=== PATIENT | male | born 1965 | race Caucasian/White ===

== ENCOUNTER 2023-08-09 17:03 | Emergency (ER) | payer OTHER ==
[2023-08-09 17:41] VITALS: BMI 19.1
[2023-08-09 22:41] VITALS: BP 102/61; PULSE 100; RESP 17; TEMP 97.8
== END 2023-08-09 22:46 | disposition short-term general hospital (02) ==
LOC: JER 17:03
DX: Z76.0 Encounter for issue of repeat prescription (principal); Z20.822 Contact with and (suspected) exposure to COVID-19
CPT/HCPCS: 0241U-QW; 99285-25

== ENCOUNTER 2023-09-01 13:51 | Inpatient (IN) | payer OTHER ==
[2023-09-01 14:58] LABS: BASO % 0.8 % (0-2.0); EOS % 2.7 % (0-4.5); HEMATOCRIT 27.3 % (35.4-49); HEMOGLOBIN 8.7 GM/dL (11.7-16.9); LYMPH % 18.5 % (8-40); MCH 30.2 pg (25.7-33.7); MCHC 31.9 g/dl (32.0-35.9); MEAN CELL VOLUME 94.7 fl (80-96); MEAN PLT VOLUME 8.9 fl (7.5-11.1); PLATELET COUNT 191 10^3/uL (134-434); RBC 2.88 M/mm3 (4.00-5.60); RDW 15.4 % (11.9-15.9); WHITE BLOOD COUNT 6.1 K/mm3 (4.0-10.0)
[2023-09-01 15:02] LABS: INR 1.54 (0.83-1.09); PROTHROMBIN TIME (PATIENT) 17.8 SEC (9.7-13.0)
[2023-09-01 15:05] LABS: ACTIVATED PTT 27.4 SECONDS (25.2-36.5)
[2023-09-01 15:33] LABS: CHLORIDE 110 mmol/L (98-107); POTASSIUM 4.4 mmol/L (3.5-5.1); SODIUM 138 mmol/L (136-145)
[2023-09-01 15:37] LABS: CALCIUM 8.4 mg/dL (8.5-10.1)
[2023-09-01 15:38] LABS: ALBUMIN 3.4 g/dl (3.4-5.0); ANION GAP 6 mmol/L (4-13); BLOOD UREA NITROGEN 47.1 mg/dL (7-18); CO2 23 mmol/L (21-32); GLUCOSE,RANDOM 187 mg/dL (74-106); MAGNESIUM 2.1 mg/dL (1.8-2.4)
[2023-09-01 15:41] LABS: CREATININE 1.7 mg/dL (0.55-1.3); SGOT/AST 52 U/L (15-37); SGPT/ALT 145 U/L (13-61)
[2023-09-01 15:43] LABS: BILIRUBIN,TOTAL 0.7 mg/dL (0.2-1); TOT PROT 6.6 g/dl (6.4-8.2)
[2023-09-01 15:44] LABS: ALK PHOS 242 U/L (45-117)
[2023-09-01] MEDS ORDERED: ASPIRIN 81 MG CHEWABLE TABLETS PO ONE (15:48)
[2023-09-01] MEDS ORDERED: ASPIRIN 325 MG TABLET ONE (16:21)
[2023-09-01] MEDS ORDERED: CLOPIDOGREL BISULFATE 75 MG TABLET (FP) PO ONE (16:39)
[2023-09-01] MEDS ORDERED: TORSEMIDE 20 MG TABLET (FP) PO ONE (16:40)
[2023-09-01] MEDS ORDERED: CLOPIDOGREL BISULFATE 75 MG TABLET (FP) ONE (16:44)
[2023-09-01] MEDS ORDERED: ATORVASTATIN CA 40 MG TABLET (FP) ONE (19:31)
[2023-09-01] MEDS ORDERED: DIGOXIN 0.125 MG TABLET ONE (19:31)
[2023-09-01] MEDS: DIGOXIN 0.125 MG TABLET PO SCH (19:46)
[2023-09-01 21:04] LABS: EPI CELLS 2 /uL (0-25.1); HYALINE CASTS 0 /uL (0-3.1); URINE APPEARANCE CLEAR; URINE BACTERIA 1 /uL (0-1359); URINE BILIRUBIN NEGATIVE (NEGATIVE); URINE COLOR YELLOW; URINE GLUCOSE (UA) NEGATIVE (NEGATIVE); URINE KETONE NEGATIVE (NEGATIVE); URINE LEUK ESTERASE NEGATIVE (NEGATIVE); URINE NITRITE NEGATIVE (NEGATIVE); URINE PROTEIN 1+ (NEGATIVE); URINE RBC 8 /uL (0-23.9); URINE UROBILINOGEN 0.2 mg/dL (0.2-1.0); URINE WBC 2 /uL (0-25.8)
[2023-09-01] MEDS: ATORVASTATIN CA 40 MG TABLET (FP) PO SCH (21:07)
[2023-09-02 08:09] LABS: POTASSIUM 4.6 mmol/L (3.5-5.1)
[2023-09-02 08:13] LABS: BASO % 1.8 % (0-2.0); EOS % 6.6 % (0-4.5); HEMATOCRIT 26.2 % (35.4-49); HEMOGLOBIN 8.8 GM/dL (11.7-16.9); LYMPH % 18.8 % (8-40); MCH 31.6 pg (25.7-33.7); MCHC 33.7 g/dl (32.0-35.9); MEAN CELL VOLUME 93.7 fl (80-96); MONO % 11.4 % (3.8-10.2); NEUT % 61.4 % (42.8-82.8); PLATELET COUNT 178 10^3/uL (134-434); RDW 15.9 % (11.9-15.9); WHITE BLOOD COUNT 5.9 K/mm3 (4.0-10.0)
[2023-09-02 08:18] LABS: CALCIUM 8.4 mg/dL (8.5-10.1)
[2023-09-02 08:19] LABS: ALBUMIN 3.2 g/dl (3.4-5.0)
[2023-09-02 08:22] LABS: CREATININE 1.6 mg/dL (0.55-1.3)
[2023-09-02 08:23] LABS: BILIRUBIN,TOTAL 0.8 mg/dL (0.2-1); TOT PROT 6.4 g/dl (6.4-8.2)
[2023-09-02] MEDS: DIGOXIN 0.125 MG TABLET PO SCH ×2 (08:41→09:14)
[2023-09-02] MEDS: ASPIRIN COATED 81 MG TABLET.EC PO SCH ×2 (08:41→09:14)
[2023-09-02] MEDS: CLOPIDOGREL BISULFATE 75 MG TABLET (FP) PO SCH ×2 (08:41→09:14)
[2023-09-02] MEDS: TORSEMIDE 20 MG TABLET (FP) PO SCH ×2 (08:41→09:14)
[2023-09-02] MEDS ORDERED: INSULIN (NOVOLOG) ASPART 100 UNITS/ML 10ML VIAL ONE (11:08)
[2023-09-02 11:29] LABS: COCAINE, UR NEGATIVE (NEGATIVE); METHADONE, UR NEGATIVE (NEGATIVE); OPIATES, URI NEGATIVE (NEGATIVE); PHENCYCLIDINE,URINE NEGATIVE (NEGATIVE); URINE AMPHETAMINES NEGATIVE (NEGATIVE); URINE BARBITURATES NEGATIVE (NEGATIVE); URINE BENZODIAZEPINES NEGATIVE (NEGATIVE)
[2023-09-02] MEDS ORDERED: FUROSEMIDE 40 MG/4 ML INJECTABLE VIAL ONE (11:31)
[2023-09-02] MEDS: FUROSEMIDE 40 MG/4 ML INJECTABLE VIAL IVPUSH SCH (12:09)
[2023-09-02 17:34] LABS: URINE APPEARANCE CLEAR; URINE BILIRUBIN NEGATIVE (NEGATIVE); URINE COLOR YELLOW; URINE GLUCOSE (UA) NEGATIVE (NEGATIVE); URINE KETONE NEGATIVE (NEGATIVE); URINE LEUK ESTERASE NEGATIVE (NEGATIVE); URINE NITRITE NEGATIVE (NEGATIVE); URINE PROTEIN NEGATIVE (NEGATIVE); URINE UROBILINOGEN 0.2 mg/dL (0.2-1.0)
[2023-09-02] MEDS: ATORVASTATIN CA 40 MG TABLET (FP) PO SCH (22:11)
[2023-09-03 07:01] LABS: BASO % 1.8 % (0-2.0); HEMATOCRIT 26.8 % (35.4-49); HEMOGLOBIN 8.8 GM/dL (11.7-16.9); MCH 30.9 pg (25.7-33.7); MEAN CELL VOLUME 93.4 fl (80-96); MEAN PLT VOLUME 9.1 fl (7.5-11.1); MONO % 12.4 % (3.8-10.2); NEUT % 57.8 % (42.8-82.8); PLATELET COUNT 193 10^3/uL (134-434); RBC 2.86 M/mm3 (4.00-5.60); RDW 15.1 % (11.9-15.9); WHITE BLOOD COUNT 6.1 K/mm3 (4.0-10.0)
[2023-09-03 07:18] LABS: POTASSIUM 4.2 mmol/L (3.5-5.1)
[2023-09-03 07:36] LABS: CALCIUM 8.6 mg/dL (8.5-10.1)
[2023-09-03 07:37] LABS: ALBUMIN 3.3 g/dl (3.4-5.0); BLOOD UREA NITROGEN 46.4 mg/dL (7-18)
[2023-09-03 07:40] LABS: CREATININE 1.6 mg/dL (0.55-1.3)
[2023-09-03 07:41] LABS: BILIRUBIN,TOTAL 0.8 mg/dL (0.2-1); TOT PROT 6.4 g/dl (6.4-8.2)
[2023-09-03] MEDS: ASPIRIN COATED 81 MG TABLET.EC PO SCH (09:37)
[2023-09-03] MEDS: FUROSEMIDE 40 MG/4 ML INJECTABLE VIAL IVPUSH SCH (09:37)
[2023-09-03] MEDS: DIGOXIN 0.125 MG TABLET PO SCH (09:38)
[2023-09-03] MEDS: CLOPIDOGREL BISULFATE 75 MG TABLET (FP) PO SCH (09:38)
[2023-09-03] MEDS ORDERED: POVIDONE-IODINE 10% SOLN 118 ML BOTTLE TP ONE (11:20)
[2023-09-03] MEDS: SPIRONOLACTONE 25 MG TABLET PO SCH (11:39)
[2023-09-03] MEDS: ATORVASTATIN CA 40 MG TABLET (FP) PO SCH (21:12)
[2023-09-03] MEDS: HEPARIN NA (PORCINE) 5,000 UNITS/ML 1ML VIAL SQ SCH (21:12)
[2023-09-04] MEDS: FUROSEMIDE 40 MG/4 ML INJECTABLE VIAL IVPUSH SCH ×2 (06:20→15:12)
[2023-09-04 07:27] LABS: BASO % 1.8 % (0-2.0); EOS % 6.4 % (0-4.5); HEMATOCRIT 25.9 % (35.4-49); HEMOGLOBIN 8.7 GM/dL (11.7-16.9); LYMPH % 23.3 % (8-40); MCH 30.7 pg (25.7-33.7); MCHC 33.6 g/dl (32.0-35.9); MEAN CELL VOLUME 91.4 fl (80-96); MONO % 15.6 % (3.8-10.2); NEUT % 52.9 % (42.8-82.8); PLATELET COUNT 192 10^3/uL (134-434); RBC 2.84 M/mm3 (4.00-5.60); RDW 15.5 % (11.9-15.9)
[2023-09-04 09:02] LABS: POTASSIUM 3.9 mmol/L (3.5-5.1)
[2023-09-04 09:06] LABS: CALCIUM 8.3 mg/dL (8.5-10.1)
[2023-09-04 09:07] LABS: ALBUMIN 3.2 g/dl (3.4-5.0); BLOOD UREA NITROGEN 42.3 mg/dL (7-18)
[2023-09-04 09:09] LABS: CREATININE 1.6 mg/dL (0.55-1.3)
[2023-09-04 09:10] LABS: PHOSPHOROUS 3.3 mg/dL (2.5-4.9)
[2023-09-04 09:12] LABS: BILIRUBIN,TOTAL 0.8 mg/dL (0.2-1); TOT PROT 6.2 g/dl (6.4-8.2)
[2023-09-04] MEDS: ASPIRIN COATED 81 MG TABLET.EC PO SCH (10:17)
[2023-09-04] MEDS: SPIRONOLACTONE 25 MG TABLET PO SCH (10:18)
[2023-09-04] MEDS: HEPARIN NA (PORCINE) 5,000 UNITS/ML 1ML VIAL SQ SCH ×2 (10:18→21:08)
[2023-09-04] MEDS: CLOPIDOGREL BISULFATE 75 MG TABLET (FP) PO SCH (10:18)
[2023-09-04] MEDS: DIGOXIN 0.125 MG TABLET PO SCH (10:18)
[2023-09-04] MEDS: INSULIN SLIDING SCALE (NOVOLOG) 1 VIAL SQ SCH (18:09)
[2023-09-04] MEDS: ATORVASTATIN CA 40 MG TABLET (FP) PO SCH (21:08)
[2023-09-05] MEDS: FUROSEMIDE 40 MG/4 ML INJECTABLE VIAL IVPUSH SCH ×2 (06:46→13:28)
[2023-09-05] MEDS: INSULIN SLIDING SCALE (NOVOLOG) 1 VIAL SQ SCH ×3 (06:50→16:34)
[2023-09-05 07:40] LABS: BASO % 1.4 % (0-2.0); EOS % 7.2 % (0-4.5); HEMATOCRIT 28.8 % (35.4-49); HEMOGLOBIN 9.4 GM/dL (11.7-16.9); LYMPH % 24.7 % (8-40); MCH 30.5 pg (25.7-33.7); MCHC 32.8 g/dl (32.0-35.9); MEAN CELL VOLUME 93.2 fl (80-96); MEAN PLT VOLUME 9.1 fl (7.5-11.1); MONO % 13.6 % (3.8-10.2); NEUT % 53.1 % (42.8-82.8); PLATELET COUNT 203 10^3/uL (134-434); RBC 3.09 M/mm3 (4.00-5.60); RDW 15.2 % (11.9-15.9); WHITE BLOOD COUNT 5.2 K/mm3 (4.0-10.0)
[2023-09-05 08:06] LABS: ALBUMIN 3.3 g/dl (3.4-5.0); BLOOD UREA NITROGEN 40.5 mg/dL (7-18); CALCIUM 8.7 mg/dL (8.5-10.1)
[2023-09-05 08:08] LABS: CREATININE 1.5 mg/dL (0.55-1.3)
[2023-09-05 08:09] LABS: BILIRUBIN,TOTAL 0.8 mg/dL (0.2-1); TOT PROT 6.3 g/dl (6.4-8.2)
[2023-09-05] MEDS: SPIRONOLACTONE 25 MG TABLET PO SCH (10:15)
[2023-09-05] MEDS: ASPIRIN COATED 81 MG TABLET.EC PO SCH (10:15)
[2023-09-05] MEDS: DIGOXIN 0.125 MG TABLET PO SCH (10:15)
[2023-09-05] MEDS: CLOPIDOGREL BISULFATE 75 MG TABLET (FP) PO SCH (10:15)
[2023-09-05] MEDS: HEPARIN NA (PORCINE) 5,000 UNITS/ML 1ML VIAL SQ SCH ×2 (10:15→21:27)
[2023-09-05] MEDS: ATORVASTATIN CA 40 MG TABLET (FP) PO SCH (21:27)
[2023-09-06] MEDS: FUROSEMIDE 40 MG/4 ML INJECTABLE VIAL IVPUSH SCH ×2 (05:52→13:04)
[2023-09-06] MEDS: INSULIN SLIDING SCALE (NOVOLOG) 1 VIAL SQ SCH ×2 (06:11→11:16)
[2023-09-06 07:02] LABS: BASO % 1.2 % (0-2.0); HEMATOCRIT 28.9 % (35.4-49); HEMOGLOBIN 9.2 GM/dL (11.7-16.9); LYMPH % 20.2 % (8-40); MCH 29.9 pg (25.7-33.7); MCHC 31.8 g/dl (32.0-35.9); MEAN CELL VOLUME 94.1 fl (80-96); MEAN PLT VOLUME 8.5 fl (7.5-11.1); MONO % 12.2 % (3.8-10.2); NEUT % 58.4 % (42.8-82.8); PLATELET COUNT 210 10^3/uL (134-434); RBC 3.07 M/mm3 (4.00-5.60); RDW 15.6 % (11.9-15.9); WHITE BLOOD COUNT 5.9 K/mm3 (4.0-10.0)
[2023-09-06 07:18] LABS: POTASSIUM 3.9 mmol/L (3.5-5.1)
[2023-09-06 07:21] LABS: ALBUMIN 3.2 g/dl (3.4-5.0); CALCIUM 8.5 mg/dL (8.5-10.1)
[2023-09-06 07:23] LABS: CREATININE 1.5 mg/dL (0.55-1.3); PHOSPHOROUS 3.2 mg/dL (2.5-4.9)
[2023-09-06 07:25] LABS: BILIRUBIN,TOTAL 0.6 mg/dL (0.2-1); TOT PROT 6.3 g/dl (6.4-8.2)
[2023-09-06] MEDS: ASPIRIN COATED 81 MG TABLET.EC PO SCH (09:38)
[2023-09-06] MEDS: SPIRONOLACTONE 25 MG TABLET PO SCH (09:38)
[2023-09-06] MEDS: CLOPIDOGREL BISULFATE 75 MG TABLET (FP) PO SCH (09:38)
[2023-09-06] MEDS: HEPARIN NA (PORCINE) 5,000 UNITS/ML 1ML VIAL SQ SCH (09:39)
[2023-09-06] MEDS: DIGOXIN 0.125 MG TABLET PO SCH (09:41)
[2023-09-06] MEDS ORDERED: RAPID SEQUENCE INTUBATION KIT NR ONE (17:31)
[2023-09-06] MEDS ORDERED: HEPARIN NA (PORCINE) 5,000 UNITS/ML 1ML VIAL IVPUSH ONE (17:55)
[2023-09-06] MEDS ORDERED: HEPARIN NA (PORCINE) 5,000 UNITS/ML 1ML VIAL IVPUSH PRN ×3 (17:55→17:56)
[2023-09-06] MEDS ORDERED: MIDAZOLAM IN 0.9 % SOD.CHLORID 100 MG/100 ML PLAST..BAG IVPB SCH (18:00)
[2023-09-06] MEDS ORDERED: HEPARIN - 25,000 UNIT in SODIUM CHLORIDE 495 ML IV SCH (18:00)
[2023-09-06] MEDS ORDERED: fentaNYL CITRATE 250 MCG/5 ML VIAL ONE (18:27)
[2023-09-06] MEDS ORDERED: MIDAZOLAM HCL 2 MG/2 ML SINGLE DOSE VIAL IVPUSH ONE (18:44)
[2023-09-06 19:25] LABS: BASO % 1.2 % (0-2.0); EOS % 6.1 % (0-4.5); HEMATOCRIT 28.5 % (35.4-49); HEMOGLOBIN 9.1 GM/dL (11.7-16.9); LYMPH % 24.4 % (8-40); MCH 29.9 pg (25.7-33.7); MCHC 31.9 g/dl (32.0-35.9); MEAN CELL VOLUME 93.9 fl (80-96); NEUT % 59.3 % (42.8-82.8); PLATELET COUNT 209 10^3/uL (134-434); RBC 3.04 M/mm3 (4.00-5.60); RDW 16.5 % (11.9-15.9); WHITE BLOOD COUNT 4.3 K/mm3 (4.0-10.0)
[2023-09-06 19:34] LABS: INR 1.38 (0.83-1.09)
[2023-09-06 19:42] LABS: CHLORIDE 103 mmol/L (98-107); POTASSIUM 3.7 mmol/L (3.5-5.1); SODIUM 135 mmol/L (136-145)
[2023-09-06 19:44] LABS: ANION GAP 13 mmol/L (4-13); CO2 19 mmol/L (21-32)
[2023-09-06 19:46] LABS: ALBUMIN 3.2 g/dl (3.4-5.0); BLOOD UREA NITROGEN 36.2 mg/dL (7-18); CALCIUM 8.1 mg/dL (8.5-10.1)
[2023-09-06 19:47] LABS: GLUCOSE,RANDOM 297 mg/dL (74-106)
[2023-09-06 19:48] LABS: BILIRUBIN,DIRECT 0.3 mg/dL (0.0-0.2); PHOSPHOROUS 5.3 mg/dL (2.5-4.9); SGOT/AST 45 U/L (15-37); SGPT/ALT 106 U/L (13-61)
[2023-09-06 19:50] LABS: TOT PROT 6.3 g/dl (6.4-8.2)
[2023-09-06 19:51] LABS: BILIRUBIN,TOTAL 0.7 mg/dL (0.2-1)
[2023-09-06 19:54] LABS: ALK PHOS 292 U/L (45-117); LACTIC ACID 6.4 mmol/L (0.4-2.0)
[2023-09-06] MEDS ORDERED: KCL 20 MEQ IVPB SCH (20:15)
[2023-09-06 20:20] LABS: ARTERIAL BLD GAS O2 SATURATION 99.8 % (95-98); ARTERIAL BLOOD GAS BASE EXCESS 0.3 mmol/L (-2-2); ARTERIAL BLOOD GAS PO2 338.3 mmHg (80-100); ARTERIAL BLOOD GAS pH 7.428 (7.350-7.450)
[2023-09-06 20:23] LABS: ALLENS TEST POSITIVE; VENT MODE A/C; VENT RATE 20
[2023-09-06] MEDS ORDERED: FUROSEMIDE INJECTION 100 MG in SODIUM CHLORIDE 40 ML IVPB SCH ×2 (20:30→20:32)
[2023-09-06] MEDS ORDERED: NOREPINEPHRINE BITARTRATE/D5W 8 MG/250 ML BAG IVPB SCH (20:45)
[2023-09-06] MEDS ORDERED: FUROSEMIDE 40 MG/4 ML INJECTABLE VIAL IVPUSH ONE (20:45)
[2023-09-06] MEDS: KCL 20 MEQ PREMIX BAG 100 ML IVPB SCH ×2 (21:17→22:16)
[2023-09-06] MEDS: ATORVASTATIN CA 40 MG TABLET (FP) PO SCH (21:26)
[2023-09-06] MEDS: MUPIROCIN 2% TOPICAL OINTMENT FOR DECOLONIZATION NS SCH (21:26)
[2023-09-06] MEDS: FENTANYL NS IVPB 500 MCG/100 ML BAG IVPB SCH (21:30)
[2023-09-06] MEDS ORDERED: ROCURONIUM BROMIDE 50 MG/5 ML VIAL IV ONE (21:46)
[2023-09-06] MEDS ORDERED: CHLORHEXIDINE GLUCONATE 4% CLEANSER FOR DECOLONIZATION TP SCH (22:00)
[2023-09-06] MEDS ORDERED: TRIPLE LUMEN FLUSH 4 ML ML IVPUSH PRN ×2 (22:40→22:41)
[2023-09-07 00:08] LABS: VENOUS BASE EXCESS -0.1 mmol/L (-2-2); VENOUS O2 SATURATION 94.1 % (70-80); VENOUS PCO2 45.8 mmHg (38-52); VENOUS PH 7.363 (7.310-7.410)
[2023-09-07] MEDS: FENTANYL NS IVPB 500 MCG/100 ML BAG IVPB SCH ×4 (02:26→18:51)
[2023-09-07] MEDS ORDERED: MIDAZOLAM HCL 2 MG/2 ML SINGLE DOSE VIAL IVPUSH ONE (02:52)
[2023-09-07] MEDS ORDERED: CEFTRIAXONE 1 GM in DEXTROSE 5%-WATER - 50 ML IVPB SCH (03:00)
[2023-09-07 07:02] LABS: BASO % 0.9 % (0-2.0); EOS % 2.6 % (0-4.5); HEMATOCRIT 27.1 % (35.4-49); HEMOGLOBIN 8.8 GM/dL (11.7-16.9); LYMPH % 16.5 % (8-40); MCH 30.2 pg (25.7-33.7); MCHC 32.3 g/dl (32.0-35.9); MEAN CELL VOLUME 93.7 fl (80-96); MEAN PLT VOLUME 9.1 fl (7.5-11.1); MONO % 11.7 % (3.8-10.2); NEUT % 68.3 % (42.8-82.8); PLATELET COUNT 198 10^3/uL (134-434); RBC 2.89 M/mm3 (4.00-5.60); RDW 15.8 % (11.9-15.9); WHITE BLOOD COUNT 7.6 K/mm3 (4.0-10.0)
[2023-09-07 07:20] LABS: POTASSIUM 4.1 mmol/L (3.5-5.1)
[2023-09-07 07:24] LABS: ALBUMIN 3.2 g/dl (3.4-5.0); CALCIUM 8.2 mg/dL (8.5-10.1); MAGNESIUM 1.9 mg/dL (1.8-2.4)
[2023-09-07 07:25] LABS: BLOOD UREA NITROGEN 36.1 mg/dL (7-18)
[2023-09-07 07:27] LABS: CREATININE 1.7 mg/dL (0.55-1.3)
[2023-09-07 07:28] LABS: PHOSPHOROUS 3.2 mg/dL (2.5-4.9)
[2023-09-07 07:29] LABS: BILIRUBIN,TOTAL 0.6 mg/dL (0.2-1); TOT PROT 6.2 g/dl (6.4-8.2)
[2023-09-07] MEDS ORDERED: ASPIRIN COATED 81 MG TABLET.EC PO SCH (10:24)
[2023-09-07] MEDS: INSULIN SLIDING SCALE (NOVOLOG) 1 VIAL SQ SCH ×2 (13:18→17:39)
[2023-09-07] MEDS: SPIRONOLACTONE 25 MG TABLET PO SCH (13:20)
[2023-09-07] MEDS: DIGOXIN 0.125 MG TABLET PO SCH (13:20)
[2023-09-07] MEDS: CLOPIDOGREL BISULFATE 75 MG TABLET (FP) PO SCH (13:20)
[2023-09-07 15:09] LABS: BASO % 1.3 % (0-2.0); EOS % 5.8 % (0-4.5); HEMOGLOBIN 8.6 GM/dL (11.7-16.9); LYMPH % 16.7 % (8-40); MCH 30.2 pg (25.7-33.7); MCHC 32.9 g/dl (32.0-35.9); MEAN CELL VOLUME 91.9 fl (80-96); MEAN PLT VOLUME 8.9 fl (7.5-11.1); MONO % 13.9 % (3.8-10.2); NEUT % 62.3 % (42.8-82.8); PLATELET COUNT 184 10^3/uL (134-434); RBC 2.83 M/mm3 (4.00-5.60); RDW 15.6 % (11.9-15.9); WHITE BLOOD COUNT 6.5 K/mm3 (4.0-10.0)
[2023-09-07 15:30] LABS: BLOOD UREA NITROGEN 33.1 mg/dL (7-18); CALCIUM 8.3 mg/dL (8.5-10.1); MAGNESIUM 1.9 mg/dL (1.8-2.4)
[2023-09-07 15:33] LABS: CREATININE 1.7 mg/dL (0.55-1.3); PHOSPHOROUS 3.1 mg/dL (2.5-4.9)
[2023-09-07 15:35] LABS: BILIRUBIN,TOTAL 0.6 mg/dL (0.2-1)
[2023-09-07] MEDS: MUPIROCIN 2% TOPICAL OINTMENT FOR DECOLONIZATION NS SCH ×2 (17:40→22:10)
[2023-09-07] MEDS ORDERED: TRIPLE LUMEN FLUSH 4 ML ML IVPUSH PRN (17:41)
[2023-09-07] MEDS: FUROSEMIDE INJECTION 100 MG in SODIUM CHLORIDE 40 ML IVPB SCH (18:49)
[2023-09-07] MEDS: MIDAZOLAM IN 0.9 % SOD.CHLORID 100 MG/100 ML PLAST..BAG IVPB SCH (18:49)
[2023-09-07] MEDS: NOREPINEPHRINE BITARTRATE/D5W 8 MG/250 ML BAG IVPB SCH (18:51)
[2023-09-07] MEDS: AZITHROMYCIN IVPB 500 MG/250 ML BAG IVPB SCH (18:52)
[2023-09-07] MEDS: CHLORHEXIDINE GLUCONATE 4% CLEANSER FOR DECOLONIZATION TP SCH (22:10)
[2023-09-07] MEDS: ATORVASTATIN CA 40 MG TABLET (FP) PO SCH (22:10)
[2023-09-07] MEDS ORDERED: ACETAMINOPHEN 1000 MG/100 ML BAG IVPB ONE (23:32)
[2023-09-08] MEDS: FENTANYL NS IVPB 500 MCG/100 ML BAG IVPB SCH ×4 (02:09→18:01)
[2023-09-08] MEDS: CEFTRIAXONE 1 GM in DEXTROSE 5%-WATER - 50 ML IVPB SCH (03:16)
[2023-09-08] MEDS: MIDAZOLAM IN 0.9 % SOD.CHLORID 100 MG/100 ML PLAST..BAG IVPB SCH (03:33)
[2023-09-08] MEDS: NOREPINEPHRINE BITARTRATE/D5W 8 MG/250 ML BAG IVPB SCH ×2 (05:09→21:04)
[2023-09-08 06:49] LABS: BASO % 1.4 % (0-2.0); EOS % 12.7 % (0-4.5); HEMATOCRIT 25.1 % (35.4-49); HEMOGLOBIN 8.2 GM/dL (11.7-16.9); LYMPH % 14.6 % (8-40); MCH 30.6 pg (25.7-33.7); MCHC 32.8 g/dl (32.0-35.9); MEAN CELL VOLUME 93.4 fl (80-96); MEAN PLT VOLUME 9.3 fl (7.5-11.1); MONO % 12.9 % (3.8-10.2); NEUT % 58.4 % (42.8-82.8); PLATELET COUNT 162 10^3/uL (134-434); RBC 2.69 M/mm3 (4.00-5.60); RDW 15.6 % (11.9-15.9); WHITE BLOOD COUNT 7.3 K/mm3 (4.0-10.0)
[2023-09-08 07:04] LABS: ALBUMIN 2.8 g/dl (3.4-5.0); BLOOD UREA NITROGEN 29.6 mg/dL (7-18); CALCIUM 8.1 mg/dL (8.5-10.1); MAGNESIUM 1.7 mg/dL (1.8-2.4)
[2023-09-08 07:07] LABS: CREATININE 1.6 mg/dL (0.55-1.3); PHOSPHOROUS 3.7 mg/dL (2.5-4.9)
[2023-09-08 07:09] LABS: BILIRUBIN,TOTAL 0.5 mg/dL (0.2-1); TOT PROT 5.8 g/dl (6.4-8.2)
[2023-09-08] MEDS: INSULIN SLIDING SCALE (NOVOLOG) 1 VIAL SQ SCH ×3 (07:10→17:50)
[2023-09-08] MEDS ORDERED: MAGNESIUM 2GM/50ML STERILE WATER IVPB IVPB ONE (07:26)
[2023-09-08 07:28] LABS: INR 1.55 (0.83-1.09); PROTHROMBIN TIME (PATIENT) 17.9 SEC (9.7-13.0)
[2023-09-08 07:31] LABS: ACTIVATED PTT 29.5 SECONDS (25.2-36.5)
[2023-09-08] MEDS: DIGOXIN 0.125 MG TABLET PO SCH (09:33)
[2023-09-08] MEDS: MUPIROCIN 2% TOPICAL OINTMENT FOR DECOLONIZATION NS SCH ×2 (09:34→22:20)
[2023-09-08] MEDS: CLOPIDOGREL BISULFATE 75 MG TABLET (FP) PO SCH (09:34)
[2023-09-08] MEDS ORDERED: SPIRONOLACTONE 25 MG TABLET PO SCH (10:00)
[2023-09-08] MEDS ORDERED: ASPIRIN COATED 81 MG TABLET.EC PO SCH ×2 (10:00)
[2023-09-08] MEDS: PANTOPRAZOLE SODIUM 40 MG VIAL IVPUSH SCH (10:42)
[2023-09-08] MEDS: ASPIRIN 81 MG CHEWABLE TABLETS PO SCH (10:42)
[2023-09-08] MEDS: AZITHROMYCIN IVPB 500 MG/250 ML BAG IVPB SCH (13:34)
[2023-09-08] MEDS ORDERED: HEPARIN NA (PORCINE) 5,000 UNITS/ML 1ML VIAL SQ SCH (14:00)
[2023-09-08 14:49] LABS: BASO % 0.7 % (0-2.0); EOS % 4.8 % (0-4.5); HEMATOCRIT 27.1 % (35.4-49); HEMOGLOBIN 8.6 GM/dL (11.7-16.9); LYMPH % 2.9 % (8-40); MCH 29.8 pg (25.7-33.7); MCHC 31.7 g/dl (32.0-35.9); MEAN CELL VOLUME 94.1 fl (80-96); MEAN PLT VOLUME 9.2 fl (7.5-11.1); MONO % 4.7 % (3.8-10.2); NEUT % 86.9 % (42.8-82.8); PLATELET COUNT 161 10^3/uL (134-434); RBC 2.88 M/mm3 (4.00-5.60); RDW 15.8 % (11.9-15.9); WHITE BLOOD COUNT 8.3 K/mm3 (4.0-10.0)
[2023-09-08 15:02] LABS: POTASSIUM 3.9 mmol/L (3.5-5.1)
[2023-09-08 15:03] LABS: ALBUMIN 2.9 g/dl (3.4-5.0); BLOOD UREA NITROGEN 30.5 mg/dL (7-18); CALCIUM 8.6 mg/dL (8.5-10.1); MAGNESIUM 2.9 mg/dL (1.8-2.4)
[2023-09-08 15:06] LABS: CREATININE 1.8 mg/dL (0.55-1.3)
[2023-09-08 15:07] LABS: BILIRUBIN,TOTAL 0.5 mg/dL (0.2-1)
[2023-09-08 15:08] LABS: TOT PROT 6.2 g/dl (6.4-8.2)
[2023-09-08 15:48] LABS: ARTERIAL BLD GAS O2 SATURATION 99.7 % (95-98); ARTERIAL BLOOD GAS BASE EXCESS -1.9 mmol/L (-2-2); ARTERIAL BLOOD GAS PO2 364.8 mmHg (80-100)
[2023-09-08 15:49] LABS: ALLENS TEST POSITIVE
[2023-09-08 15:50] LABS: VENT RATE 20
[2023-09-08] MEDS: FUROSEMIDE INJECTION 100 MG in SODIUM CHLORIDE 40 ML IVPB SCH (17:51)
[2023-09-08] MEDS: ATORVASTATIN CA 40 MG TABLET (FP) PO SCH (22:21)
[2023-09-08] MEDS: CHLORHEXIDINE GLUCONATE 4% CLEANSER FOR DECOLONIZATION TP SCH (22:21)
[2023-09-09] MEDS: FENTANYL NS IVPB 500 MCG/100 ML BAG IVPB SCH ×3 (00:06→18:48)
[2023-09-09] MEDS: MIDAZOLAM IN 0.9 % SOD.CHLORID 100 MG/100 ML PLAST..BAG IVPB SCH (03:09)
[2023-09-09] MEDS: CEFTRIAXONE 1 GM in DEXTROSE 5%-WATER - 50 ML IVPB SCH (03:09)
[2023-09-09] MEDS: ATORVASTATIN CA 40 MG TABLET (FP) PO SCH ×2 (06:22→21:12)
[2023-09-09] MEDS: INSULIN SLIDING SCALE (NOVOLOG) 1 VIAL SQ SCH ×4 (06:23→16:51)
[2023-09-09 07:11] LABS: BASO % 0.3 % (0-2.0); EOS % 3.7 % (0-4.5); HEMOGLOBIN 8.4 GM/dL (11.7-16.9); LYMPH % 5.7 % (8-40); MCH 29.9 pg (25.7-33.7); MCHC 32.3 g/dl (32.0-35.9); MEAN CELL VOLUME 92.6 fl (80-96); MEAN PLT VOLUME 9.2 fl (7.5-11.1); MONO % 7.8 % (3.8-10.2); NEUT % 82.5 % (42.8-82.8); PLATELET COUNT 151 10^3/uL (134-434); RBC 2.81 M/mm3 (4.00-5.60); RDW 15.4 % (11.9-15.9); WHITE BLOOD COUNT 10.8 K/mm3 (4.0-10.0)
[2023-09-09 07:26] LABS: POTASSIUM 4.3 mmol/L (3.5-5.1)
[2023-09-09 07:28] LABS: ALBUMIN 2.8 g/dl (3.4-5.0); BLOOD UREA NITROGEN 33.6 mg/dL (7-18)
[2023-09-09 07:31] LABS: CREATININE 1.7 mg/dL (0.55-1.3); INR 1.54 (0.83-1.09); PROTHROMBIN TIME (PATIENT) 17.8 SEC (9.7-13.0)
[2023-09-09 07:33] LABS: BILIRUBIN,TOTAL 0.8 mg/dL (0.2-1); TOT PROT 6.1 g/dl (6.4-8.2)
[2023-09-09 07:34] LABS: ACTIVATED PTT 30.1 SECONDS (25.2-36.5)
[2023-09-09] MEDS: ACETAMINOPHEN 1000 MG/100 ML BAG IVPB PRN ×2 (08:46→23:29)
[2023-09-09] MEDS: DIGOXIN 0.125 MG TABLET PO SCH (11:03)
[2023-09-09] MEDS: PANTOPRAZOLE SODIUM 40 MG VIAL IVPUSH SCH (11:03)
[2023-09-09] MEDS: MUPIROCIN 2% TOPICAL OINTMENT FOR DECOLONIZATION NS SCH ×2 (11:04→21:13)
[2023-09-09] MEDS: CLOPIDOGREL BISULFATE 75 MG TABLET (FP) PO SCH (11:04)
[2023-09-09] MEDS: ASPIRIN 81 MG CHEWABLE TABLETS PO SCH (11:04)
[2023-09-09] MEDS: FUROSEMIDE 40 MG/4 ML INJECTABLE VIAL IVPUSH SCH (13:49)
[2023-09-09] MEDS: ASPIRIN COATED 81 MG TABLET.EC PO SCH (14:00)
[2023-09-09 14:19] VITALS: BMI 21.9
[2023-09-09] MEDS: PIPERACILLIN/TAZOB 3.375 GM 3.375 GM in DEXTROSE 5%-WATER - 50 ML IVPB SCH (17:33)
[2023-09-09] MEDS ORDERED: PIPERACILLIN/TAZOB 3.375 GM 3.375 GM in DEXTROSE 5%-WATER - 50 ML IVPB SCH (18:00)
[2023-09-09] MEDS: CHLORHEXIDINE GLUCONATE 4% CLEANSER FOR DECOLONIZATION TP SCH (21:13)
[2023-09-10] MEDS: FENTANYL NS IVPB 500 MCG/100 ML BAG IVPB SCH ×4 (01:36→17:48)
[2023-09-10] MEDS: PIPERACILLIN/TAZOB 3.375 GM 3.375 GM in DEXTROSE 5%-WATER - 50 ML IVPB SCH ×3 (01:36→17:45)
[2023-09-10] MEDS: NOREPINEPHRINE BITARTRATE/D5W 8 MG/250 ML BAG IVPB SCH ×2 (04:08→17:47)
[2023-09-10] MEDS: FUROSEMIDE 40 MG/4 ML INJECTABLE VIAL IVPUSH SCH (05:40)
[2023-09-10 07:22] LABS: BASO % 0.4 % (0-2.0); EOS % 4.5 % (0-4.5); HEMOGLOBIN 8.5 GM/dL (11.7-16.9); LYMPH % 6.2 % (8-40); MCH 29.4 pg (25.7-33.7); MCHC 31.5 g/dl (32.0-35.9); MEAN CELL VOLUME 93.1 fl (80-96); MEAN PLT VOLUME 9.7 fl (7.5-11.1); MONO % 10.1 % (3.8-10.2); NEUT % 78.8 % (42.8-82.8); PLATELET COUNT 160 10^3/uL (134-434); WHITE BLOOD COUNT 11.2 K/mm3 (4.0-10.0)
[2023-09-10 07:43] LABS: POTASSIUM 4.1 mmol/L (3.5-5.1)
[2023-09-10 07:50] LABS: ALBUMIN 2.8 g/dl (3.4-5.0); BLOOD UREA NITROGEN 34.9 mg/dL (7-18); PHOSPHOROUS 5.6 mg/dL (2.5-4.9)
[2023-09-10 07:52] LABS: BILIRUBIN,TOTAL 0.6 mg/dL (0.2-1); CALCIUM 8.7 mg/dL (8.5-10.1); MAGNESIUM 2.5 mg/dL (1.8-2.4); TOT PROT 6.2 g/dl (6.4-8.2)
[2023-09-10 07:53] LABS: CREATININE 1.8 mg/dL (0.55-1.3)
[2023-09-10] MEDS: PANTOPRAZOLE SODIUM 40 MG VIAL IVPUSH SCH (09:16)
[2023-09-10] MEDS: ASPIRIN 81 MG CHEWABLE TABLETS PO SCH (09:17)
[2023-09-10] MEDS: MUPIROCIN 2% TOPICAL OINTMENT FOR DECOLONIZATION NS SCH ×2 (09:17→21:08)
[2023-09-10] MEDS: CLOPIDOGREL BISULFATE 75 MG TABLET (FP) PO SCH (09:17)
[2023-09-10] MEDS: DIGOXIN 0.125 MG TABLET PO SCH (09:17)
[2023-09-10] MEDS ORDERED: PHYTONADIONE 10 MG/1 ML AMP IM ONE (10:30)
[2023-09-10] MEDS: INSULIN SLIDING SCALE (NOVOLOG) 1 VIAL SQ SCH ×4 (12:52→23:42)
[2023-09-10] MEDS: CHLORHEXIDINE GLUCONATE 4% CLEANSER FOR DECOLONIZATION TP SCH (21:08)
[2023-09-10] MEDS: ATORVASTATIN CA 40 MG TABLET (FP) PO SCH (21:08)
[2023-09-11] MEDS: PIPERACILLIN/TAZOB 3.375 GM 3.375 GM in DEXTROSE 5%-WATER - 50 ML IVPB SCH ×3 (01:22→18:28)
[2023-09-11] MEDS ORDERED: fentaNYL CITRATE 250 MCG/5 ML VIAL ONE (06:54)
[2023-09-11 07:28] LABS: BASO % 0.7 % (0-2.0); EOS % 17.4 % (0-4.5); HEMOGLOBIN 8.4 GM/dL (11.7-16.9); MCHC 32.3 g/dl (32.0-35.9); MEAN CELL VOLUME 92.7 fl (80-96); MEAN PLT VOLUME 9.5 fl (7.5-11.1); NEUT % 64.9 % (42.8-82.8); PLATELET COUNT 175 10^3/uL (134-434); RBC 2.81 M/mm3 (4.00-5.60); RDW 15.6 % (11.9-15.9); WHITE BLOOD COUNT 7.9 K/mm3 (4.0-10.0)
[2023-09-11 07:29] LABS: INR 1.45 (0.83-1.09); PROTHROMBIN TIME (PATIENT) 16.8 SEC (9.7-13.0)
[2023-09-11 07:32] LABS: ACTIVATED PTT 33.4 SECONDS (25.2-36.5)
[2023-09-11 08:53] LABS: POTASSIUM 3.8 mmol/L (3.5-5.1)
[2023-09-11 08:59] LABS: CALCIUM 8.5 mg/dL (8.5-10.1)
[2023-09-11 09:00] LABS: ALBUMIN 2.5 g/dl (3.4-5.0); BLOOD UREA NITROGEN 34.5 mg/dL (7-18); MAGNESIUM 2.3 mg/dL (1.8-2.4)
[2023-09-11 09:01] LABS: CREATININE 1.6 mg/dL (0.55-1.3)
[2023-09-11 09:02] LABS: BILIRUBIN,TOTAL 0.6 mg/dL (0.2-1)
[2023-09-11 09:03] LABS: PHOSPHOROUS 3.6 mg/dL (2.5-4.9); TOT PROT 5.9 g/dl (6.4-8.2)
[2023-09-11] MEDS ORDERED: ACETAMINOPHEN 1000 MG/100 ML BAG IVPB ONE (09:45)
[2023-09-11] MEDS: ASPIRIN 81 MG CHEWABLE TABLETS PO SCH (10:04)
[2023-09-11] MEDS: INSULIN SLIDING SCALE (NOVOLOG) 1 VIAL SQ SCH ×3 (10:04→23:23)
[2023-09-11] MEDS: MUPIROCIN 2% TOPICAL OINTMENT FOR DECOLONIZATION NS SCH (10:04)
[2023-09-11] MEDS: CLOPIDOGREL BISULFATE 75 MG TABLET (FP) PO SCH (10:05)
[2023-09-11] MEDS: PANTOPRAZOLE SODIUM 40 MG VIAL IVPUSH SCH (10:05)
[2023-09-11] MEDS: DIGOXIN 0.125 MG TABLET PO SCH (10:05)
[2023-09-11] MEDS ORDERED: RAPID SEQUENCE INTUBATION KIT NR ONE (10:16)
[2023-09-11] MEDS ORDERED: ACETAMINOPHEN INJECTION 100 ML IVPB ONE (15:30)
[2023-09-11] MEDS: NOREPINEPHRINE BITARTRATE/D5W 8 MG/250 ML BAG IVPB SCH (18:27)
[2023-09-11] MEDS: CHLORHEXIDINE GLUCONATE 4% CLEANSER FOR DECOLONIZATION TP SCH (20:59)
[2023-09-11] MEDS: ATORVASTATIN CA 40 MG TABLET (FP) PO SCH (20:59)
[2023-09-12] MEDS: PIPERACILLIN/TAZOB 3.375 GM 3.375 GM in DEXTROSE 5%-WATER - 50 ML IVPB SCH ×3 (00:59→17:57)
[2023-09-12 06:29] LABS: BASO % 0.3 % (0-2.0); HEMATOCRIT 25.2 % (35.4-49); HEMOGLOBIN 8.2 GM/dL (11.7-16.9); LYMPH % 8.3 % (8-40); MCH 29.9 pg (25.7-33.7); MCHC 32.3 g/dl (32.0-35.9); MEAN CELL VOLUME 92.6 fl (80-96); MEAN PLT VOLUME 9.3 fl (7.5-11.1); MONO % 7.5 % (3.8-10.2); NEUT % 78.9 % (42.8-82.8); PLATELET COUNT 198 10^3/uL (134-434); RBC 2.72 M/mm3 (4.00-5.60); RDW 15.7 % (11.9-15.9); WHITE BLOOD COUNT 6.4 K/mm3 (4.0-10.0)
[2023-09-12 07:05] LABS: POTASSIUM 3.7 mmol/L (3.5-5.1)
[2023-09-12 07:07] LABS: ALBUMIN 2.6 g/dl (3.4-5.0); CALCIUM 8.6 mg/dL (8.5-10.1); MAGNESIUM 2.2 mg/dL (1.8-2.4)
[2023-09-12 07:10] LABS: CREATININE 1.5 mg/dL (0.55-1.3); PHOSPHOROUS 2.6 mg/dL (2.5-4.9)
[2023-09-12 07:17] LABS: BILIRUBIN,TOTAL 0.7 mg/dL (0.2-1)
[2023-09-12] MEDS: INSULIN SLIDING SCALE (NOVOLOG) 1 VIAL SQ SCH ×3 (09:00→22:59)
[2023-09-12] MEDS: DIGOXIN 0.125 MG TABLET PO SCH (09:34)
[2023-09-12] MEDS: ASPIRIN 81 MG CHEWABLE TABLETS PO SCH (09:34)
[2023-09-12] MEDS: CLOPIDOGREL BISULFATE 75 MG TABLET (FP) PO SCH (09:35)
[2023-09-12] MEDS: NOREPINEPHRINE BITARTRATE/D5W 8 MG/250 ML BAG IVPB SCH (18:00)
[2023-09-12] MEDS: ATORVASTATIN CA 40 MG TABLET (FP) PO SCH (21:00)
[2023-09-12] MEDS: CHLORHEXIDINE GLUCONATE 4% CLEANSER FOR DECOLONIZATION TP SCH (21:01)
[2023-09-13] MEDS: PIPERACILLIN/TAZOB 3.375 GM 3.375 GM in DEXTROSE 5%-WATER - 50 ML IVPB SCH ×3 (02:38→17:07)
[2023-09-13 06:33] LABS: HEMATOCRIT 24.6 % (35.4-49); HEMOGLOBIN 7.8 GM/dL (11.7-16.9); MCH 29.3 pg (25.7-33.7); MCHC 31.7 g/dl (32.0-35.9); MEAN CELL VOLUME 92.2 fl (80-96); MEAN PLT VOLUME 9.2 fl (7.5-11.1); PLATELET COUNT 212 10^3/uL (134-434); RBC 2.67 M/mm3 (4.00-5.60); RDW 15.2 % (11.9-15.9); WHITE BLOOD COUNT 4.8 K/mm3 (4.0-10.0)
[2023-09-13 06:52] LABS: POTASSIUM 3.6 mmol/L (3.5-5.1)
[2023-09-13 06:55] LABS: CALCIUM 8.4 mg/dL (8.5-10.1)
[2023-09-13 06:56] LABS: ALBUMIN 2.5 g/dl (3.4-5.0); BLOOD UREA NITROGEN 19.1 mg/dL (7-18); MAGNESIUM 2.2 mg/dL (1.8-2.4)
[2023-09-13 06:59] LABS: CREATININE 1.3 mg/dL (0.55-1.3); PHOSPHOROUS 2.7 mg/dL (2.5-4.9)
[2023-09-13 07:00] LABS: BILIRUBIN,TOTAL 0.7 mg/dL (0.2-1); TOT PROT 5.8 g/dl (6.4-8.2)
[2023-09-13] MEDS: CLOPIDOGREL BISULFATE 75 MG TABLET (FP) PO SCH (08:59)
[2023-09-13] MEDS: ASPIRIN 81 MG CHEWABLE TABLETS PO SCH (08:59)
[2023-09-13] MEDS: DIGOXIN 0.125 MG TABLET PO SCH (08:59)
[2023-09-13] MEDS: INSULIN SLIDING SCALE (NOVOLOG) 1 VIAL SQ SCH ×3 (09:00→23:57)
[2023-09-13] MEDS ORDERED: FUROSEMIDE 20 MG TABLET (FP) PO ONE (10:45)
[2023-09-13] MEDS: NOREPINEPHRINE BITARTRATE/D5W 8 MG/250 ML BAG IVPB SCH (20:30)
[2023-09-13] MEDS: ATORVASTATIN CA 40 MG TABLET (FP) PO SCH (21:00)
[2023-09-13] MEDS: CHLORHEXIDINE GLUCONATE 4% CLEANSER FOR DECOLONIZATION TP SCH (21:01)
[2023-09-14] MEDS: PIPERACILLIN/TAZOB 3.375 GM 3.375 GM in DEXTROSE 5%-WATER - 50 ML IVPB SCH ×3 (01:15→17:13)
[2023-09-14 07:26] LABS: BASO % 1.3 % (0-2.0); EOS % 16.4 % (0-4.5); HEMATOCRIT 24.9 % (35.4-49); LYMPH % 19.8 % (8-40); MCH 29.5 pg (25.7-33.7); MCHC 32.2 g/dl (32.0-35.9); MEAN CELL VOLUME 91.4 fl (80-96); MEAN PLT VOLUME 9.2 fl (7.5-11.1); MONO % 13.6 % (3.8-10.2); NEUT % 48.9 % (42.8-82.8); PLATELET COUNT 250 10^3/uL (134-434); RBC 2.72 M/mm3 (4.00-5.60); RDW 15.5 % (11.9-15.9); WHITE BLOOD COUNT 4.1 K/mm3 (4.0-10.0)
[2023-09-14 07:35] LABS: ALBUMIN 2.7 g/dl (3.4-5.0); BLOOD UREA NITROGEN 18.1 mg/dL (7-18); MAGNESIUM 2.3 mg/dL (1.8-2.4)
[2023-09-14 07:38] LABS: CREATININE 1.2 mg/dL (0.55-1.3); PHOSPHOROUS 3.1 mg/dL (2.5-4.9)
[2023-09-14 07:39] LABS: BILIRUBIN,TOTAL 0.8 mg/dL (0.2-1)
[2023-09-14] MEDS: INSULIN SLIDING SCALE (NOVOLOG) 1 VIAL SQ SCH ×3 (09:00→16:32)
[2023-09-14] MEDS: CLOPIDOGREL BISULFATE 75 MG TABLET (FP) PO SCH (09:09)
[2023-09-14] MEDS: DIGOXIN 0.125 MG TABLET PO SCH (09:09)
[2023-09-14] MEDS: HEPARIN NA (PORCINE) 5,000 UNITS/ML 1ML VIAL SQ SCH ×2 (09:09→21:28)
[2023-09-14] MEDS: ASPIRIN 81 MG CHEWABLE TABLETS PO SCH (09:09)
[2023-09-14] MEDS: CHLORHEXIDINE GLUCONATE 4% CLEANSER FOR DECOLONIZATION TP SCH (21:29)
[2023-09-14] MEDS: ATORVASTATIN CA 40 MG TABLET (FP) PO SCH (21:29)
[2023-09-15] MEDS: PIPERACILLIN/TAZOB 3.375 GM 3.375 GM in DEXTROSE 5%-WATER - 50 ML IVPB SCH ×3 (01:42→17:08)
[2023-09-15] MEDS: INSULIN SLIDING SCALE (NOVOLOG) 1 VIAL SQ SCH ×3 (06:23→17:07)
[2023-09-15 06:48] LABS: HEMATOCRIT 26.4 % (35.4-49); HEMOGLOBIN 8.6 GM/dL (11.7-16.9); MCH 29.5 pg (25.7-33.7); MCHC 32.4 g/dl (32.0-35.9); MEAN CELL VOLUME 91.2 fl (80-96); MEAN PLT VOLUME 9.2 fl (7.5-11.1); PLATELET COUNT 301 10^3/uL (134-434); RDW 15.3 % (11.9-15.9); WHITE BLOOD COUNT 4.3 K/mm3 (4.0-10.0)
[2023-09-15 07:15] LABS: POTASSIUM 3.9 mmol/L (3.5-5.1)
[2023-09-15 07:21] LABS: CALCIUM 8.9 mg/dL (8.5-10.1)
[2023-09-15 07:22] LABS: BLOOD UREA NITROGEN 23.4 mg/dL (7-18)
[2023-09-15 07:25] LABS: CREATININE 1.3 mg/dL (0.55-1.3)
[2023-09-15] MEDS ORDERED: TRIPLE LUMEN FLUSH 4 ML ML IVPUSH PRN (07:35)
[2023-09-15] MEDS: HEPARIN NA (PORCINE) 5,000 UNITS/ML 1ML VIAL SQ SCH ×2 (09:26→21:42)
[2023-09-15] MEDS: DIGOXIN 0.125 MG TABLET PO SCH (09:26)
[2023-09-15] MEDS: CLOPIDOGREL BISULFATE 75 MG TABLET (FP) PO SCH (09:27)
[2023-09-15] MEDS: TORSEMIDE 20 MG TABLET (FP) PO SCH (09:27)
[2023-09-15] MEDS: ASPIRIN 81 MG CHEWABLE TABLETS PO SCH (09:27)
[2023-09-15] MEDS ORDERED: INSULIN (NOVOLOG) ASPART 100 UNITS/ML 10ML VIAL ONE (17:01)
[2023-09-15] MEDS: ATORVASTATIN CA 40 MG TABLET (FP) PO SCH (21:42)
[2023-09-15] MEDS: CHLORHEXIDINE GLUCONATE 4% CLEANSER FOR DECOLONIZATION TP SCH (21:42)
[2023-09-16] MEDS: PIPERACILLIN/TAZOB 3.375 GM 3.375 GM in DEXTROSE 5%-WATER - 50 ML IVPB SCH ×2 (01:31→10:31)
[2023-09-16 06:11] LABS: BASO % 0.7 % (0-2.0); EOS % 9.5 % (0-4.5); HEMATOCRIT 22.8 % (35.4-49); HEMOGLOBIN 7.4 GM/dL (11.7-16.9); LYMPH % 27.1 % (8-40); MCH 29.7 pg (25.7-33.7); MCHC 32.5 g/dl (32.0-35.9); MEAN CELL VOLUME 91.3 fl (80-96); MEAN PLT VOLUME 9.4 fl (7.5-11.1); MONO % 10.5 % (3.8-10.2); NEUT % 52.2 % (42.8-82.8); PLATELET COUNT 362 10^3/uL (134-434); RDW 15.8 % (11.9-15.9); WHITE BLOOD COUNT 5.7 K/mm3 (4.0-10.0)
[2023-09-16 06:29] LABS: POTASSIUM 4.8 mmol/L (3.5-5.1)
[2023-09-16 06:31] LABS: CALCIUM 8.5 mg/dL (8.5-10.1)
[2023-09-16 06:32] LABS: ALBUMIN 2.6 g/dl (3.4-5.0); MAGNESIUM 2.1 mg/dL (1.8-2.4)
[2023-09-16 06:35] LABS: CREATININE 1.4 mg/dL (0.55-1.3); PHOSPHOROUS 3.2 mg/dL (2.5-4.9)
[2023-09-16 06:37] LABS: BILIRUBIN,TOTAL 0.5 mg/dL (0.2-1)
[2023-09-16] MEDS: INSULIN SLIDING SCALE (NOVOLOG) 1 VIAL SQ SCH ×3 (06:40→17:43)
[2023-09-16] MEDS: ASPIRIN 81 MG CHEWABLE TABLETS PO SCH (10:31)
[2023-09-16] MEDS: HEPARIN NA (PORCINE) 5,000 UNITS/ML 1ML VIAL SQ SCH ×2 (10:31→21:53)
[2023-09-16] MEDS: CLOPIDOGREL BISULFATE 75 MG TABLET (FP) PO SCH (10:31)
[2023-09-16] MEDS: DIGOXIN 0.125 MG TABLET PO SCH (10:31)
[2023-09-16] MEDS: TORSEMIDE 20 MG TABLET (FP) PO SCH (10:31)
[2023-09-16] MEDS: CHLORHEXIDINE GLUCONATE 4% CLEANSER FOR DECOLONIZATION TP SCH (21:53)
[2023-09-16] MEDS: ATORVASTATIN CA 40 MG TABLET (FP) PO SCH (21:53)
[2023-09-17 06:30] LABS: BASO % 1.9 % (0-2.0); EOS % 7.5 % (0-4.5); HEMATOCRIT 25.5 % (35.4-49); HEMOGLOBIN 8.1 GM/dL (11.7-16.9); LYMPH % 26.9 % (8-40); MCH 29.2 pg (25.7-33.7); MEAN CELL VOLUME 91.4 fl (80-96); MONO % 10.2 % (3.8-10.2); NEUT % 53.5 % (42.8-82.8); PLATELET COUNT 379 10^3/uL (134-434); RBC 2.79 M/mm3 (4.00-5.60); RDW 15.9 % (11.9-15.9)
[2023-09-17] MEDS: INSULIN SLIDING SCALE (NOVOLOG) 1 VIAL SQ SCH ×3 (06:39→17:22)
[2023-09-17 06:46] LABS: POTASSIUM 4.5 mmol/L (3.5-5.1)
[2023-09-17 06:51] LABS: CALCIUM 8.8 mg/dL (8.5-10.1)
[2023-09-17 06:52] LABS: ALBUMIN 2.8 g/dl (3.4-5.0); BLOOD UREA NITROGEN 28.6 mg/dL (7-18)
[2023-09-17 06:55] LABS: CREATININE 1.4 mg/dL (0.55-1.3); PHOSPHOROUS 3.4 mg/dL (2.5-4.9)
[2023-09-17 06:56] LABS: BILIRUBIN,TOTAL 0.4 mg/dL (0.2-1); TOT PROT 6.2 g/dl (6.4-8.2)
[2023-09-17] MEDS: DIGOXIN 0.125 MG TABLET PO SCH (09:15)
[2023-09-17] MEDS: TORSEMIDE 20 MG TABLET (FP) PO SCH (09:15)
[2023-09-17] MEDS: ASPIRIN 81 MG CHEWABLE TABLETS PO SCH (09:15)
[2023-09-17] MEDS: HEPARIN NA (PORCINE) 5,000 UNITS/ML 1ML VIAL SQ SCH ×2 (09:15→21:04)
[2023-09-17] MEDS: CLOPIDOGREL BISULFATE 75 MG TABLET (FP) PO SCH (09:15)
[2023-09-17] MEDS ORDERED: INSULIN (NOVOLOG) ASPART 100 UNITS/ML 10ML VIAL ONE (13:09)
[2023-09-17] MEDS: CHLORHEXIDINE GLUCONATE 4% CLEANSER FOR DECOLONIZATION TP SCH (21:04)
[2023-09-17] MEDS: ATORVASTATIN CA 40 MG TABLET (FP) PO SCH (21:04)
[2023-09-18 07:57] LABS: BASO % 1.7 % (0-2.0); EOS % 6.7 % (0-4.5); HEMATOCRIT 25.2 % (35.4-49); LYMPH % 23.5 % (8-40); MCH 29.2 pg (25.7-33.7); MCHC 31.7 g/dl (32.0-35.9); MEAN PLT VOLUME 9.1 fl (7.5-11.1); MONO % 10.1 % (3.8-10.2); PLATELET COUNT 382 10^3/uL (134-434); RBC 2.74 M/mm3 (4.00-5.60); WHITE BLOOD COUNT 6.1 K/mm3 (4.0-10.0)
[2023-09-18] MEDS: INSULIN SLIDING SCALE (NOVOLOG) 1 VIAL SQ SCH ×3 (08:13→17:30)
[2023-09-18 08:26] LABS: ALBUMIN 2.8 g/dl (3.4-5.0); BLOOD UREA NITROGEN 36.4 mg/dL (7-18); CALCIUM 8.7 mg/dL (8.5-10.1); MAGNESIUM 1.9 mg/dL (1.8-2.4)
[2023-09-18 08:31] VITALS: RESP 18
[2023-09-18 08:31] LABS: BILIRUBIN,TOTAL 0.3 mg/dL (0.2-1); CREATININE 1.4 mg/dL (0.55-1.3); PHOSPHOROUS 3.2 mg/dL (2.5-4.9); TOT PROT 6.1 g/dl (6.4-8.2)
[2023-09-18] MEDS: ASPIRIN 81 MG CHEWABLE TABLETS PO SCH (10:07)
[2023-09-18] MEDS: TORSEMIDE 20 MG TABLET (FP) PO SCH (10:07)
[2023-09-18] MEDS: HEPARIN NA (PORCINE) 5,000 UNITS/ML 1ML VIAL SQ SCH (10:08)
[2023-09-18] MEDS: CLOPIDOGREL BISULFATE 75 MG TABLET (FP) PO SCH (10:08)
[2023-09-18] MEDS: DIGOXIN 0.125 MG TABLET PO SCH (10:09)
[2023-09-18 10:34] VITALS: TEMP 98
[2023-09-18 17:40] VITALS: BP 98/64; PULSE 97
== END 2023-09-18 16:38 | disposition home or self-care (01) | DRG 194 ==
LOC: JER 13:51 → UNDOADMOB 15:56 → JERBED 15:56 → INTOOBSV 15:56 → JERBED 18:29 → OBSVTOIN 09-02 11:25 → J4W 09-02 21:20 → JICU 09-06 18:01 → J2W 09-14 17:00
PROVIDERS: ADMIT Internal Medicine; ATTEND Internal Medicine
PROC: 05H633Z Insertion of Infusion Device into Left Subclavian Vein, Percutaneous Approach (ICD-10-PCS; principal; 2023-09-06)
PROC: 05HM33Z Insertion of Infusion Device into Right Internal Jugular Vein, Percutaneous Approach (ICD-10-PCS; 2023-09-06)
PROC: B543ZZA Ultrasonography of Right Jugular Veins, Guidance (ICD-10-PCS; 2023-09-06)
PROC: 0BH17EZ Insertion of Endotracheal Airway into Trachea, Via Natural or Artificial Opening (ICD-10-PCS; 2023-09-06)
PROC: 5A1955Z Respiratory Ventilation, Greater than 96 Consecutive Hours (ICD-10-PCS; 2023-09-06)
PROC: 5A12012 Performance of Cardiac Output, Single, Manual (ICD-10-PCS; 2023-09-08)
PROC: 0BC78ZZ Extirpation of Matter from Left Main Bronchus, Via Natural or Artificial Opening Endoscopic (ICD-10-PCS; 2023-09-08)
PROC: 0BC38ZZ Extirpation of Matter from Right Main Bronchus, Via Natural or Artificial Opening Endoscopic (ICD-10-PCS; 2023-09-08)
DX: I13.0 Hypertensive heart and chronic kidney disease with heart failure and stage 1 through stage 4 chronic kidney disease, or unspecified chronic kidney disease (principal); I25.10 Atherosclerotic heart disease of native coronary artery without angina pectoris; E78.5 Hyperlipidemia, unspecified; J96.01 Acute respiratory failure with hypoxia; J69.0 Pneumonitis due to inhalation of food and vomit; I21.4 Non-ST elevation (NSTEMI) myocardial infarction; E11.22 Type 2 diabetes mellitus with diabetic chronic kidney disease; E43 Unspecified severe protein-calorie malnutrition; N18.9 Chronic kidney disease, unspecified; I50.23 Acute on chronic systolic (congestive) heart failure; D63.1 Anemia in chronic kidney disease; N17.9 Acute kidney failure, unspecified; R57.0 Cardiogenic shock; I31.39 Other pericardial effusion (noninflammatory); E87.20 Acidosis, unspecified; E06.3 Autoimmune thyroiditis; D64.9 Anemia, unspecified; I08.3 Combined rheumatic disorders of mitral, aortic and tricuspid valves; R64 Cachexia; Z68.20 Body mass index [BMI] 20.0-20.9, adult; I25.5 Ischemic cardiomyopathy; R50.9 Fever, unspecified; D72.829 Elevated white blood cell count, unspecified; Z59.00 Homelessness unspecified; Z91.148 Patient's other noncompliance with medication regimen for other reason; Z95.5 Presence of coronary angioplasty implant and graft
CPT/HCPCS: 0241U-QW; 31500; 36415; 36600; 71045-TC-FY; 80048; 80053; 80076; 80162; 80307; 81003; 82550; 82570; 82728; 82803; 82962; 83036; 83540; 83550; 83605; 83735; 83880; 84100; 84300; 84439; 84443; 84466; 84479; 84484; 85025; 85027; 85045; 85379; 85384; 85610; 85730; 86850; 86900; 86901; 87040; 87070; 87086; 87205; 93005; 93010; 93306-TC; 93970-TC; 94002; 94010; 97116-GP; 97161-GP; 99285-25; G0378; J1250; J1644

== ENCOUNTER 2023-12-22 23:12 | Inpatient (IN) | payer OTHER ==
[2023-12-23 00:02] LABS: INR 1.57 (0.83-1.09); PROTHROMBIN TIME (PATIENT) 18.1 SEC (9.7-13.0)
[2023-12-23 00:04] LABS: ACTIVATED PTT 32.1 SECONDS (25.2-36.5)
[2023-12-23] MEDS ORDERED: FUROSEMIDE 40 MG/4 ML INJECTABLE VIAL ONE (00:04)
[2023-12-23] MEDS: FUROSEMIDE 40 MG/4 ML INJECTABLE VIAL IVPUSH ONE (00:13)
[2023-12-23 00:27] LABS: CHLORIDE 107 mmol/L (98-107); POTASSIUM 4.7 mmol/L (3.5-5.1); SODIUM 137 mmol/L (136-145)
[2023-12-23 00:29] LABS: ALBUMIN 3.5 g/dl (3.4-5.0); CALCIUM 9.3 mg/dL (8.5-10.1)
[2023-12-23 00:30] LABS: ANION GAP 14 mmol/L (4-13); BLOOD UREA NITROGEN 44.7 mg/dL (7-18); CO2 16 mmol/L (21-32); MAGNESIUM 2.4 mg/dL (1.8-2.4)
[2023-12-23 00:33] LABS: PHOSPHOROUS 4.4 mg/dL (2.5-4.9); SGOT/AST 41 U/L (15-37); SGPT/ALT 24 U/L (13-61)
[2023-12-23 00:34] LABS: BILIRUBIN,TOTAL 2.6 mg/dL (0.2-1); TOT PROT 7.6 g/dl (6.4-8.2)
[2023-12-23 00:35] LABS: ALK PHOS 125 U/L (45-117)
[2023-12-23 00:40] LABS: BASO % 0.3 % (0-2.0); EOS % 0.1 % (0-4.5); HEMATOCRIT 46.9 % (35.4-49); HEMOGLOBIN 14.9 GM/dL (11.7-16.9); LYMPH % 9.2 % (8-40); MCH 29.1 pg (25.7-33.7); MCHC 31.7 g/dl (32.0-35.9); MEAN CELL VOLUME 91.7 fl (80-96); MONO % 6.8 % (3.8-10.2); NEUT % 83.6 % (42.8-82.8); RBC 5.11 M/mm3 (4.00-5.60); RDW 20.1 % (11.9-15.9)
[2023-12-23 00:41] LABS: LACTIC ACID 5.1 mmol/L (0.4-2.0)
[2023-12-23 00:55] LABS: GLUCOSE,RANDOM 39 mg/dL (74-106); N-TERMINAL BNP 42712.3 pg/ml (5-125)
[2023-12-23] MEDS ORDERED: HEPARIN NA (PORCINE) 5,000 UNITS/ML 1ML VIAL IVPUSH PRN ×2 (01:03)
[2023-12-23] MEDS ORDERED: ACETAMINOPHEN INJECTION 100 ML IVPB ONE (01:28)
[2023-12-23] MEDS: HEPARIN NA (PORCINE) 5,000 UNITS/ML 1ML VIAL IVPUSH ONE (01:45)
[2023-12-23] MEDS: ACETAMINOPHEN 1000 MG/100 ML BAG IVPB ONE (01:50)
[2023-12-23] MEDS: HEPARIN INFUSION - 25,000 UNITS/500 ML INFUS.BAG IVPB SCH (01:59)
[2023-12-23 04:09] LABS: MEAN PLT VOLUME 10.2 fl (7.5-11.1); PLATELET COUNT 123 10^3/uL (134-434)
[2023-12-23] MEDS ORDERED: DEXTROSE 50%-WATER - 25 GM/50 ML VIAL IVPUSH PRN (07:42)
[2023-12-23] MEDS ORDERED: FUROSEMIDE 40 MG/4 ML INJECTABLE VIAL IVPUSH SCH (10:00)
[2023-12-23] MEDS: AZITHROMYCIN 500 MG TABLET PO ONE (10:11)
[2023-12-23] MEDS: FUROSEMIDE 40 MG/4 ML INJECTABLE VIAL IVPUSH SCH (10:12)
[2023-12-23] MEDS: CEFTRIAXONE 1 GM in DEXTROSE 5%-WATER - 50 ML IVPB SCH (10:12)
[2023-12-23 11:22] LABS: LACTIC ACID 2.8 mmol/L (0.4-2.0)
[2023-12-23 13:28] LABS: LDH 300 U/L (87-246)
[2023-12-23] MEDS: INSULIN ASPART SLIDING SCALE (NOVOLOG) 1 VIAL SQ SCH (16:28)
[2023-12-23] MEDS: ATORVASTATIN CA 40 MG TABLET (FP) PO SCH (21:40)
[2023-12-24] MEDS: LEVOTHYROXINE NA 50 MCG TABLET (FP) PO SCH (06:03)
[2023-12-24 07:07] LABS: BASO % 0.8 % (0-2.0); EOS % 1.1 % (0-4.5); HEMATOCRIT 38.6 % (35.4-49); HEMOGLOBIN 12.4 GM/dL (11.7-16.9); MCH 28.7 pg (25.7-33.7); MCHC 32.1 g/dl (32.0-35.9); MEAN CELL VOLUME 89.6 fl (80-96); MEAN PLT VOLUME 9.5 fl (7.5-11.1); NEUT % 64.1 % (42.8-82.8); PLATELET COUNT 94 10^3/uL (134-434); RBC 4.31 M/mm3 (4.00-5.60); RDW 19.1 % (11.9-15.9); WHITE BLOOD COUNT 3.3 K/mm3 (4.0-10.0)
[2023-12-24 07:39] LABS: CALCIUM 9.1 mg/dL (8.5-10.1)
[2023-12-24 07:40] LABS: BLOOD UREA NITROGEN 48.3 mg/dL (7-18)
[2023-12-24 07:42] LABS: CREATININE 1.8 mg/dL (0.55-1.3)
[2023-12-24 07:44] LABS: BILIRUBIN,TOTAL 1.8 mg/dL (0.2-1); TOT PROT 6.6 g/dl (6.4-8.2)
[2023-12-24] MEDS: DIGOXIN 0.125 MG TABLET PO SCH (09:27)
[2023-12-24] MEDS ORDERED: DIGOXIN 0.125 MG TABLET PO SCH (10:00)
[2023-12-24] MEDS: AZITHROMYCIN 250 MG TABLET PO SCH (10:02)
[2023-12-24 15:45] LABS: BF WBC & OTHER NUCLEATED CELLS 40 /mm3; BODY FLUID MONOCYTE 36 %
[2023-12-24 15:46] LABS: BODY FLUID MACROPHAGES 2 %; BODY FLUID MESOTHELIAL 8 %
[2023-12-24 22:00] LABS: HEMATOCRIT 40.3 % (35.4-49); HEMOGLOBIN 13.4 GM/dL (11.7-16.9); MCH 29.5 pg (25.7-33.7); MCHC 33.2 g/dl (32.0-35.9); MEAN CELL VOLUME 88.8 fl (80-96); MEAN PLT VOLUME 9.7 fl (7.5-11.1); PLATELET COUNT 92 10^3/uL (134-434); RBC 4.53 M/mm3 (4.00-5.60); RDW 19.5 % (11.9-15.9); WHITE BLOOD COUNT 5.4 K/mm3 (4.0-10.0)
[2023-12-25 08:31] LABS: BASO % 0.3 % (0-2.0); EOS % 0.4 % (0-4.5); HEMATOCRIT 36.1 % (35.4-49); LYMPH % 13.8 % (8-40); MCH 29.4 pg (25.7-33.7); MCHC 33.4 g/dl (32.0-35.9); MEAN CELL VOLUME 87.9 fl (80-96); MEAN PLT VOLUME 9.7 fl (7.5-11.1); MONO % 12.5 % (3.8-10.2); PLATELET COUNT 87 10^3/uL (134-434); RDW 19.2 % (11.9-15.9); WHITE BLOOD COUNT 3.8 K/mm3 (4.0-10.0)
[2023-12-25 08:50] LABS: POTASSIUM 3.5 mmol/L (3.5-5.1)
[2023-12-25 08:55] LABS: ALBUMIN 2.8 g/dl (3.4-5.0); BLOOD UREA NITROGEN 41.7 mg/dL (7-18); CALCIUM 8.5 mg/dL (8.5-10.1)
[2023-12-25 08:58] LABS: CREATININE 1.7 mg/dL (0.55-1.3)
[2023-12-25 09:00] LABS: BILIRUBIN,TOTAL 1.3 mg/dL (0.2-1); TOT PROT 5.9 g/dl (6.4-8.2)
[2023-12-25] MEDS: CLOPIDOGREL BISULFATE 75 MG TABLET (FP) PO SCH (10:45)
[2023-12-25] MEDS ORDERED: HALOPERIDOL LACTATE 5 MG/ML ONE (20:58)
[2023-12-25] MEDS: HALOPERIDOL LACTATE 5 MG/ML IM ONE (21:05)
[2023-12-25 22:00] LABS: BASO % 0.4 % (0-2.0); EOS % 0.8 % (0-4.5); HEMATOCRIT 37.7 % (35.4-49); HEMOGLOBIN 12.2 GM/dL (11.7-16.9); LYMPH % 26.9 % (8-40); MCH 28.7 pg (25.7-33.7); MCHC 32.4 g/dl (32.0-35.9); MEAN CELL VOLUME 88.5 fl (80-96); MEAN PLT VOLUME 9.4 fl (7.5-11.1); MONO % 11.5 % (3.8-10.2); NEUT % 60.4 % (42.8-82.8); PLATELET COUNT 99 10^3/uL (134-434); RBC 4.26 M/mm3 (4.00-5.60); RDW 19.2 % (11.9-15.9); WHITE BLOOD COUNT 4.5 K/mm3 (4.0-10.0)
[2023-12-25 22:17] LABS: POTASSIUM 3.1 mmol/L (3.5-5.1)
[2023-12-25 22:19] LABS: CALCIUM 8.4 mg/dL (8.5-10.1)
[2023-12-25 22:20] LABS: ALBUMIN 2.9 g/dl (3.4-5.0); BLOOD UREA NITROGEN 38.9 mg/dL (7-18)
[2023-12-25 22:23] LABS: CREATININE 1.8 mg/dL (0.55-1.3)
[2023-12-25 22:24] LABS: BILIRUBIN,TOTAL 1.2 mg/dL (0.2-1); TOT PROT 6.3 g/dl (6.4-8.2)
[2023-12-25 22:49] LABS: LACTIC ACID 4.3 mmol/L (0.4-2.0)
[2023-12-25] MEDS: LORazepam 2 MG/ML SDV VIAL IVPUSH ONE (23:45)
[2023-12-26] MEDS ORDERED: DEXTROSE 5%-LACTATED RINGERS 1,000 ML IV SCH (00:30)
[2023-12-26 00:48] LABS: MAGNESIUM 1.5 mg/dL (1.8-2.4)
[2023-12-26 00:52] LABS: PHOSPHOROUS 2.8 mg/dL (2.5-4.9)
[2023-12-26] MEDS: MAGNESIUM SULF 50% (8.12 MEQ/2 ML-1 GM VIAL) IVPB ONE (01:44)
[2023-12-26 03:18] LABS: VENOUS BASE EXCESS 0.2 mmol/L (-2-2); VENOUS PCO2 39.8 mmHg (38-52); VENOUS PH 7.411 (7.310-7.410)
[2023-12-26 03:19] LABS: EPI CELLS >36 /uL (0-25.1); HYALINE CASTS 2 /uL (0-3.1); URINE APPEARANCE CLOUDY; URINE BACTERIA 99 /uL (0-1359); URINE BILIRUBIN NEGATIVE (NEGATIVE); URINE COLOR YELLOW; URINE GLUCOSE (UA) NEGATIVE (NEGATIVE); URINE KETONE NEGATIVE (NEGATIVE); URINE LEUK ESTERASE 3+ (NEGATIVE); URINE NITRITE NEGATIVE (NEGATIVE); URINE PROTEIN NEGATIVE (NEGATIVE); URINE UROBILINOGEN 0.2 mg/dL (0.2-1.0); URINE WBC 83 /uL (0-25.8)
[2023-12-26] MEDS: POTASSIUM PHOSPHATE 30 MM in SODIUM CHLORIDE 500 ML IVPB ONE (07:04)
[2023-12-26 07:53] LABS: MAGNESIUM 2.5 mg/dL (1.8-2.4)
[2023-12-26 07:57] LABS: PHOSPHOROUS 2.8 mg/dL (2.5-4.9)
[2023-12-26 10:09] LABS: URINE RBC 63 /uL (0-23.9)
[2023-12-26 10:51] LABS: BASO % 0.4 % (0-2.0); EOS % 1.3 % (0-4.5); HEMATOCRIT 39.4 % (35.4-49); HEMOGLOBIN 12.7 GM/dL (11.7-16.9); LYMPH % 11.1 % (8-40); MCH 28.8 pg (25.7-33.7); MCHC 32.3 g/dl (32.0-35.9); MEAN CELL VOLUME 89.2 fl (80-96); MEAN PLT VOLUME 9.6 fl (7.5-11.1); NEUT % 75.2 % (42.8-82.8); PLATELET COUNT 89 10^3/uL (134-434); RBC 4.42 M/mm3 (4.00-5.60); RDW 19.6 % (11.9-15.9); WHITE BLOOD COUNT 4.2 K/mm3 (4.0-10.0)
[2023-12-26] MEDS: ASPIRIN COATED 81 MG TABLET.EC PO SCH (10:52)
[2023-12-26 11:21] LABS: POTASSIUM 3.5 mmol/L (3.5-5.1)
[2023-12-26 11:23] LABS: CALCIUM 8.6 mg/dL (8.5-10.1)
[2023-12-26 11:28] LABS: BILIRUBIN,TOTAL 1.2 mg/dL (0.2-1); TOT PROT 6.4 g/dl (6.4-8.2)
[2023-12-26 11:32] LABS: BLOOD UREA NITROGEN 36.3 mg/dL (7-18); CREATININE 1.6 mg/dL (0.55-1.3)
[2023-12-26] MEDS: LACTULOSE 20 GM/30 ML UDC (FOR ORAL USE ONLY) PO SCH (13:53)
[2023-12-26 17:06] LABS: BODY FLUID ALBUMIN 0.9 g/dL (Not Estab.)
[2023-12-28] MEDS: metoPROLOL SUCCINATE 25 MG TAB.SR.24H (FP) PO SCH (05:35)
[2023-12-28 07:19] LABS: BASO % 0.5 % (0-2.0); EOS % 1.9 % (0-4.5); HEMATOCRIT 35.7 % (35.4-49); HEMOGLOBIN 11.7 GM/dL (11.7-16.9); LYMPH % 15.9 % (8-40); MCHC 32.9 g/dl (32.0-35.9); MEAN CELL VOLUME 88.2 fl (80-96); MEAN PLT VOLUME 9.9 fl (7.5-11.1); MONO % 12.4 % (3.8-10.2); NEUT % 69.3 % (42.8-82.8); PLATELET COUNT 95 10^3/uL (134-434); RBC 4.05 M/mm3 (4.00-5.60); WHITE BLOOD COUNT 3.4 K/mm3 (4.0-10.0)
[2023-12-28 07:35] LABS: POTASSIUM 3.9 mmol/L (3.5-5.1)
[2023-12-28 07:38] LABS: CALCIUM 8.4 mg/dL (8.5-10.1)
[2023-12-28 07:42] LABS: CREATININE 1.5 mg/dL (0.55-1.3)
[2023-12-28 07:43] LABS: ALBUMIN 2.8 g/dl (3.4-5.0); MAGNESIUM 1.8 mg/dL (1.8-2.4)
[2023-12-28 07:44] LABS: BILIRUBIN,TOTAL 1.1 mg/dL (0.2-1); BLOOD UREA NITROGEN 31.3 mg/dL (7-18); PHOSPHOROUS 3.1 mg/dL (2.5-4.9); TOT PROT 6.1 g/dl (6.4-8.2)
[2023-12-28] MEDS: VALSARTAN 40 MG TABLET PO SCH (18:11)
[2023-12-29 08:12] LABS: EOS % 0.6 % (0-4.5); HEMATOCRIT 35.8 % (35.4-49); HEMOGLOBIN 11.6 GM/dL (11.7-16.9); MCH 28.7 pg (25.7-33.7); MCHC 32.5 g/dl (32.0-35.9); MEAN CELL VOLUME 88.4 fl (80-96); MEAN PLT VOLUME 9.8 fl (7.5-11.1); MONO % 9.8 % (3.8-10.2); NEUT % 78.6 % (42.8-82.8); PLATELET COUNT 95 10^3/uL (134-434); RBC 4.06 M/mm3 (4.00-5.60); WHITE BLOOD COUNT 5.4 K/mm3 (4.0-10.0)
[2023-12-29 08:32] LABS: POTASSIUM 3.5 mmol/L (3.5-5.1)
[2023-12-29 08:34] LABS: ALBUMIN 2.8 g/dl (3.4-5.0); BLOOD UREA NITROGEN 36.4 mg/dL (7-18); CALCIUM 8.2 mg/dL (8.5-10.1); MAGNESIUM 1.8 mg/dL (1.8-2.4)
[2023-12-29 08:37] LABS: CREATININE 1.5 mg/dL (0.55-1.3); PHOSPHOROUS 2.3 mg/dL (2.5-4.9)
[2023-12-29 08:39] LABS: TOT PROT 6.2 g/dl (6.4-8.2)
[2023-12-30] MEDS: FUROSEMIDE 40 MG/4 ML INJECTABLE VIAL IVPUSH SCH (05:32)
[2023-12-30 07:44] LABS: BASO % 0.9 % (0-2.0); EOS % 1.9 % (0-4.5); HEMATOCRIT 35.3 % (35.4-49); HEMOGLOBIN 11.4 GM/dL (11.7-16.9); LYMPH % 14.4 % (8-40); MCH 28.3 pg (25.7-33.7); MCHC 32.2 g/dl (32.0-35.9); MEAN CELL VOLUME 87.9 fl (80-96); MEAN PLT VOLUME 9.9 fl (7.5-11.1); MONO % 14.8 % (3.8-10.2); PLATELET COUNT 101 10^3/uL (134-434); RBC 4.01 M/mm3 (4.00-5.60); WHITE BLOOD COUNT 4.9 K/mm3 (4.0-10.0)
[2023-12-30 07:49] LABS: POTASSIUM 3.4 mmol/L (3.5-5.1)
[2023-12-30 08:16] LABS: ALBUMIN 2.6 g/dl (3.4-5.0); BILIRUBIN,TOTAL 1.1 mg/dL (0.2-1); CALCIUM 7.8 mg/dL (8.5-10.1); CREATININE 1.5 mg/dL (0.55-1.3); MAGNESIUM 1.7 mg/dL (1.8-2.4); PHOSPHOROUS 2.4 mg/dL (2.5-4.9)
[2023-12-30] MEDS: levETIRAcetam 500 MG/5 ML INJECTION VIAL IVPB ONE ×2 (09:47→12:46)
[2023-12-30] MEDS: MAGNESIUM 2GM/50ML STERILE WATER IVPB IVPB ONE ×2 (11:40→13:35)
[2023-12-30] MEDS: levETIRAcetam 500 MG/5 ML INJECTION VIAL IVPB SCH ×2 (12:18→22:49)
[2023-12-30] MEDS: metoPROLOL SUCCINATE 25 MG TAB.SR.24H (FP) PO SCH (12:21)
[2023-12-30] MEDS ORDERED: INSULIN (NOVOLOG) ASPART 100 UNITS/ML 10ML VIAL ONE (12:23)
[2023-12-30] MEDS: POTASSIUM PHOSPHATE 30 MM in SODIUM CHLORIDE 500 ML IVPB ONE (12:41)
[2023-12-30] MEDS ORDERED: ATORVASTATIN CA 20 MG TABLET (FP) ONE (22:55)
[2023-12-31] MEDS: FUROSEMIDE 40 MG/4 ML INJECTABLE VIAL IVPUSH SCH (06:12)
[2023-12-31 07:24] LABS: BASO % 0.7 % (0-2.0); EOS % 1.2 % (0-4.5); HEMATOCRIT 34.8 % (35.4-49); HEMOGLOBIN 11.5 GM/dL (11.7-16.9); MCH 29.1 pg (25.7-33.7); MEAN CELL VOLUME 88.1 fl (80-96); MEAN PLT VOLUME 9.4 fl (7.5-11.1); NEUT % 65.1 % (42.8-82.8); PLATELET COUNT 110 10^3/uL (134-434); RBC 3.94 M/mm3 (4.00-5.60); RDW 18.5 % (11.9-15.9); WHITE BLOOD COUNT 4.3 K/mm3 (4.0-10.0)
[2023-12-31 07:40] LABS: POTASSIUM 3.7 mmol/L (3.5-5.1)
[2023-12-31 07:42] LABS: ALBUMIN 2.7 g/dl (3.4-5.0); CALCIUM 8.3 mg/dL (8.5-10.1)
[2023-12-31 07:43] LABS: BLOOD UREA NITROGEN 30.8 mg/dL (7-18); MAGNESIUM 1.8 mg/dL (1.8-2.4)
[2023-12-31 07:46] LABS: CREATININE 1.2 mg/dL (0.55-1.3); PHOSPHOROUS 3.4 mg/dL (2.5-4.9)
[2023-12-31 07:48] LABS: BILIRUBIN,TOTAL 1.2 mg/dL (0.2-1)
[2023-12-31] MEDS ORDERED: VALPROATE SODIUM 500 MG/5 ML VIAL IVPB SCH (10:00)
[2023-12-31] MEDS: metoPROLOL SUCCINATE 25 MG TAB.SR.24H (FP) PO SCH (10:01)
[2023-12-31] MEDS: ACETAMINOPHEN 325 MG TABLET (FP) PO PRN (10:17)
[2023-12-31] MEDS ORDERED: INSULIN (NOVOLOG) ASPART 100 UNITS/ML 10ML VIAL ONE ×2 (10:45→10:53)
[2023-12-31] MEDS: VALPROATE SODIUM INJECTION 250 MG in SODIUM CHLORIDE 50 ML IVPB SCH (10:57)
[2023-12-31 16:51] LABS: COCAINE, UR NEGATIVE (NEGATIVE); OPIATES, URI NEGATIVE (NEGATIVE); URINE BARBITURATES NEGATIVE (NEGATIVE)
[2023-12-31 16:53] LABS: METHADONE, UR NEGATIVE (NEGATIVE); PHENCYCLIDINE,URINE NEGATIVE (NEGATIVE); URINE BENZODIAZEPINES NEGATIVE (NEGATIVE)
[2023-12-31 17:03] LABS: URINE AMPHETAMINES NEGATIVE (NEGATIVE)
[2024-01-01 07:20] LABS: BASO % 1.1 % (0-2.0); EOS % 0.6 % (0-4.5); HEMATOCRIT 40.4 % (35.4-49); LYMPH % 9.1 % (8-40); MCH 28.4 pg (25.7-33.7); MCHC 32.3 g/dl (32.0-35.9); MEAN CELL VOLUME 87.9 fl (80-96); MEAN PLT VOLUME 9.2 fl (7.5-11.1); MONO % 11.6 % (3.8-10.2); NEUT % 77.6 % (42.8-82.8); PLATELET COUNT 149 10^3/uL (134-434); RBC 4.59 M/mm3 (4.00-5.60); RDW 19.3 % (11.9-15.9); WHITE BLOOD COUNT 4.7 K/mm3 (4.0-10.0)
[2024-01-01 07:28] LABS: POTASSIUM 4.4 mmol/L (3.5-5.1)
[2024-01-01 07:34] LABS: ALBUMIN 2.9 g/dl (3.4-5.0); CALCIUM 8.3 mg/dL (8.5-10.1)
[2024-01-01 07:35] LABS: BLOOD UREA NITROGEN 40.8 mg/dL (7-18); MAGNESIUM 1.7 mg/dL (1.8-2.4)
[2024-01-01 07:37] LABS: CREATININE 1.6 mg/dL (0.55-1.3); PHOSPHOROUS 3.2 mg/dL (2.5-4.9)
[2024-01-01 07:39] LABS: BILIRUBIN,TOTAL 1.3 mg/dL (0.2-1); TOT PROT 6.6 g/dl (6.4-8.2)
[2024-01-01] MEDS ORDERED: VALPROATE SODIUM 500 MG/5 ML VIAL IVPB ONE (09:40)
[2024-01-01] MEDS: VALPROATE SODIUM INJECTION 750 MG in SODIUM CHLORIDE 100 ML IVPB ONE (10:33)
[2024-01-01] MEDS: MAGNESIUM SULF 50% (8.12 MEQ/2 ML-1 GM VIAL) IVPB ONE (10:39)
[2024-01-01] MEDS: levETIRAcetam 500 MG/5 ML INJECTION VIAL IVPB ONE (18:04)
[2024-01-01 18:44] LABS: CHLORIDE 100 mmol/L (98-107); SODIUM 135 mmol/L (136-145)
[2024-01-01 18:46] LABS: BLOOD UREA NITROGEN 35.6 mg/dL (7-18); CALCIUM 8.5 mg/dL (8.5-10.1); CO2 28 mmol/L (21-32); GLUCOSE,RANDOM 82 mg/dL (74-106)
[2024-01-01 18:48] LABS: MAGNESIUM 2.5 mg/dL (1.8-2.4)
[2024-01-01 18:49] LABS: CREATININE 1.4 mg/dL (0.55-1.3); PHOSPHOROUS 3.4 mg/dL (2.5-4.9)
[2024-01-01] MEDS ORDERED: ACETAMINOPHEN 325 MG TABLET (FP) PO PRN (18:58)
[2024-01-01] MEDS ORDERED: DEXTROSE 50%-WATER - 25 GM/50 ML VIAL IVPUSH PRN (18:58)
[2024-01-01 19:08] LABS: ANION GAP 7 mmol/L (4-13); POTASSIUM 6.2 mmol/L (3.5-5.1)
[2024-01-01] MEDS: CHLORHEXIDINE GLUCONATE 4% CLEANSER FOR DECOLONIZATION TP SCH (21:09)
[2024-01-01] MEDS: MUPIROCIN 2% TOPICAL OINTMENT FOR DECOLONIZATION NS SCH (21:09)
[2024-01-01] MEDS: VALPROATE SODIUM INJECTION 250 MG in SODIUM CHLORIDE 50 ML IVPB SCH (21:09)
[2024-01-01] MEDS: INSULIN ASPART SLIDING SCALE (NOVOLOG) 1 VIAL SQ SCH (21:10)
[2024-01-01 21:48] LABS: POTASSIUM 4.3 mmol/L (3.5-5.1)
[2024-01-01 21:50] LABS: CALCIUM 8.7 mg/dL (8.5-10.1)
[2024-01-01 21:51] LABS: BLOOD UREA NITROGEN 36.1 mg/dL (7-18)
[2024-01-01 21:54] LABS: CREATININE 1.3 mg/dL (0.55-1.3)
[2024-01-01] MEDS: ATORVASTATIN CA 40 MG TABLET (FP) PO SCH (21:56)
[2024-01-01] MEDS ORDERED: MUPIROCIN 2% TOPICAL OINTMENT FOR DECOLONIZATION NS SCH (22:00)
[2024-01-01] MEDS ORDERED: VALPROATE SODIUM INJECTION 250 MG in SODIUM CHLORIDE 50 ML IVPB SCH (22:00)
[2024-01-01] MEDS ORDERED: CHLORHEXIDINE GLUCONATE 4% CLEANSER FOR DECOLONIZATION TP SCH (22:00)
[2024-01-01 22:25] LABS: ARTERIAL BLD GAS O2 SATURATION 98.3 % (95-98); ARTERIAL BLOOD GAS BASE EXCESS 5.6 mmol/L (-2-2); ARTERIAL BLOOD GAS PO2 112.9 mmHg (80-100); ARTERIAL BLOOD GAS pH 7.453 (7.350-7.450)
[2024-01-01 22:26] LABS: ALLENS TEST POSITIVE
[2024-01-01] MEDS: SODIUM CHLORIDE FOR INHALATION 3 ML VIAL.NEB IH PRN (22:33)
[2024-01-02] MEDS: FUROSEMIDE 40 MG/4 ML INJECTABLE VIAL IVPUSH SCH (05:32)
[2024-01-02] MEDS ORDERED: DEXTROSE 5%-WATER - 1,000 ML IV SCH (05:45)
[2024-01-02] MEDS: DEXTROSE 5%-WATER - 1,000 ML IV SCH ×2 (06:10→21:49)
[2024-01-02] MEDS: LEVOTHYROXINE NA 50 MCG TABLET (FP) PO SCH (06:11)
[2024-01-02 08:52] LABS: CALCIUM 9.1 mg/dL (8.5-10.1)
[2024-01-02 08:53] LABS: ALBUMIN 2.6 g/dl (3.4-5.0); BLOOD UREA NITROGEN 31.4 mg/dL (7-18); MAGNESIUM 2.3 mg/dL (1.8-2.4)
[2024-01-02 08:57] LABS: BILIRUBIN,TOTAL 1.1 mg/dL (0.2-1); CREATININE 1.2 mg/dL (0.55-1.3); PHOSPHOROUS 3.3 mg/dL (2.5-4.9); TOT PROT 6.1 g/dl (6.4-8.2)
[2024-01-02] MEDS ORDERED: LACTATED RINGERS SOLUTION 1,000 ML/1,000 ML INFUS.BAG IV SCH (09:15)
[2024-01-02] MEDS ORDERED: HEPARIN NA (PORCINE) 5,000 UNITS/ML 1ML VIAL IVPUSH PRN ×2 (09:59→10:00)
[2024-01-02] MEDS ORDERED: DIGOXIN 0.125 MG TABLET PO SCH (10:00)
[2024-01-02] MEDS ORDERED: ASPIRIN COATED 81 MG TABLET.EC PO SCH (10:00)
[2024-01-02] MEDS ORDERED: metoPROLOL SUCCINATE 25 MG TAB.SR.24H (FP) PO SCH (10:00)
[2024-01-02] MEDS ORDERED: CEFTRIAXONE 1 GM in DEXTROSE 5%-WATER - 50 ML IVPB SCH (10:00)
[2024-01-02] MEDS ORDERED: CLOPIDOGREL BISULFATE 75 MG TABLET (FP) PO SCH (10:00)
[2024-01-02] MEDS ORDERED: VALSARTAN 40 MG TABLET PO SCH (10:00)
[2024-01-02] MEDS: HEPARIN INFUSION - 25,000 UNITS/500 ML INFUS.BAG IVPB SCH (10:22)
[2024-01-02] MEDS: LACTATED RINGERS SOLUTION 1,000 ML/1,000 ML INFUS.BAG IV SCH (10:26)
[2024-01-02] MEDS: LEVOTHYROXINE SODIUM 100 MCG 5 ML VIAL IVPUSH SCH (11:39)
[2024-01-03] MEDS ORDERED: ACETAMINOPHEN INJECTION 100 ML IVPB ONE (01:05)
[2024-01-03 06:23] LABS: BASO % 1.1 % (0-2.0); EOS % 0.3 % (0-4.5); HEMATOCRIT 41.2 % (35.4-49); LYMPH % 17.1 % (8-40); MCH 28.2 pg (25.7-33.7); MCHC 31.6 g/dl (32.0-35.9); MEAN CELL VOLUME 89.1 fl (80-96); MONO % 14.7 % (3.8-10.2); NEUT % 66.8 % (42.8-82.8); PLATELET COUNT 145 10^3/uL (134-434); RBC 4.62 M/mm3 (4.00-5.60); RDW 19.2 % (11.9-15.9); WHITE BLOOD COUNT 4.5 K/mm3 (4.0-10.0)
[2024-01-03] MEDS ORDERED: DEXTROSE 50%-WATER 25 GM/50 ML DISP.SYRIN ONE (06:33)
[2024-01-03] MEDS: ACETAMINOPHEN 1000 MG/100 ML BAG IVPB ONE (06:43)
[2024-01-03] MEDS: DEXTROSE 50%-WATER 25 GM/50 ML DISP.SYRIN IVPUSH PRN (06:43)
[2024-01-03 07:04] LABS: POTASSIUM 4.4 mmol/L (3.5-5.1)
[2024-01-03 07:06] LABS: CALCIUM 9.4 mg/dL (8.5-10.1)
[2024-01-03 07:07] LABS: BLOOD UREA NITROGEN 30.5 mg/dL (7-18); INR 1.38 (0.83-1.09)
[2024-01-03 07:10] LABS: ACTIVATED PTT 55.4 SECONDS (25.2-36.5); CREATININE 1.5 mg/dL (0.55-1.3); PHOSPHOROUS 4.9 mg/dL (2.5-4.9)
[2024-01-03 07:12] LABS: BILIRUBIN,TOTAL 1.7 mg/dL (0.2-1); TOT PROT 6.8 g/dl (6.4-8.2)
[2024-01-03] MEDS: DEXTROSE 5%-WATER - 1,000 ML IV SCH (08:30)
[2024-01-03] MEDS: PIPERACILLIN/TAZOB 2.25 GM 2.25 GM in DEXTROSE 5%-WATER - 50 ML IVPB SCH ×2 (09:06→10:15)
[2024-01-03] MEDS ORDERED: RAPID SEQUENCE INTUBATION KIT NR ONE (09:18)
[2024-01-03] MEDS ORDERED: NOREPINEPHRINE BITARTRATE 4 MG/4 ML ML IV ONE ×2 (09:25→09:31)
[2024-01-03] MEDS: ETOMIDATE 20 MG/10 ML VIAL IVPUSH ONE (09:30)
[2024-01-03] MEDS: NOREPINEPHRINE BITARTRATE 4,000 MCG in DEXTROSE 5%-WATER - 496 ML IV SCH (09:45)
[2024-01-03] MEDS: MIDAZOLAM IN 0.9 % SOD.CHLORID 100 MG/100 ML PLAST..BAG IVPB SCH (10:03)
[2024-01-03] MEDS: ROCURONIUM BROMIDE 50 MG/5 ML VIAL IVPUSH ONE (10:04)
[2024-01-03 12:13] LABS: ARTERIAL BLD GAS O2 SATURATION 97.1 % (95-98); ARTERIAL BLOOD GAS BASE EXCESS 6.7 mmol/L (-2-2); ARTERIAL BLOOD GAS PO2 78.9 mmHg (80-100); ARTERIAL BLOOD GAS pH 7.568 (7.350-7.450)
[2024-01-03 12:17] LABS: ALLENS TEST POSITIVE; VENT MODE A/C; VENT RATE 24
[2024-01-03] MEDS: LACTATED RINGERS SOLUTION 1,000 ML/1,000 ML INFUS.BAG IV SCH (13:00)
[2024-01-03] MEDS: DEXTROSE 5%-LACTATED RINGERS 1,000 ML IV SCH ×2 (14:00→22:05)
[2024-01-03] MEDS: PIPERACILLIN/TAZOB 3.375 GM 3.375 GM in DEXTROSE 5%-WATER - 50 ML IVPB SCH (17:38)
[2024-01-03] MEDS: INSULIN ASPART SLIDING SCALE (NOVOLOG) 1 VIAL SQ SCH (17:51)
[2024-01-03] MEDS ORDERED: NOREPINEPHRINE 0.9 % NACL 8 MG/250 ML BAG IVPB SCH (18:00)
[2024-01-03] MEDS: NOREPINEPHRINE BITARTRATE/D5W 8 MG/250 ML BAG IVPB SCH (18:28)
[2024-01-03] MEDS: FENTANYL CITRATE/PF 50 MCG/ML VIAL IVPUSH ONE (22:08)
[2024-01-04] MEDS: FENTANYL NS IVPB 500 MCG/100 ML BAG IVPB SCH ×2 (05:19→06:56)
[2024-01-04] MEDS: MIDAZOLAM IN 0.9 % SOD.CHLORID 100 MG/100 ML PLAST..BAG IVPB SCH (06:08)
[2024-01-04 06:34] LABS: ARTERIAL BLD GAS O2 SATURATION 99.2 % (95-98); ARTERIAL BLOOD GAS BASE EXCESS 9.5 mmol/L (-2-2); ARTERIAL BLOOD GAS PO2 150.8 mmHg (80-100); ARTERIAL BLOOD GAS pH 7.582 (7.350-7.450)
[2024-01-04 06:41] LABS: ALLENS TEST POSITIVE
[2024-01-04 06:43] LABS: VENT MODE A/C; VENT RATE 18
[2024-01-04 07:15] LABS: VENOUS BASE EXCESS 8.8 mmol/L (-2-2); VENOUS O2 SATURATION 85.7 % (70-80); VENOUS PCO2 38.8 mmHg (38-52); VENOUS PH 7.535 (7.310-7.410)
[2024-01-04 07:20] LABS: BASO % 0.9 % (0-2.0); EOS % 1.9 % (0-4.5); HEMOGLOBIN 13.2 GM/dL (11.7-16.9); LYMPH % 15.5 % (8-40); MCH 28.1 pg (25.7-33.7); MCHC 32.1 g/dl (32.0-35.9); MEAN CELL VOLUME 87.7 fl (80-96); MEAN PLT VOLUME 9.6 fl (7.5-11.1); MONO % 12.1 % (3.8-10.2); NEUT % 69.6 % (42.8-82.8); PLATELET COUNT 129 10^3/uL (134-434); RBC 4.68 M/mm3 (4.00-5.60); RDW 18.2 % (11.9-15.9); WHITE BLOOD COUNT 5.1 K/mm3 (4.0-10.0)
[2024-01-04 07:34] LABS: POTASSIUM 3.1 mmol/L (3.5-5.1)
[2024-01-04 07:37] LABS: CALCIUM 8.9 mg/dL (8.5-10.1)
[2024-01-04 07:38] LABS: BLOOD UREA NITROGEN 24.7 mg/dL (7-18); MAGNESIUM 1.9 mg/dL (1.8-2.4)
[2024-01-04 07:41] LABS: CREATININE 1.2 mg/dL (0.55-1.3); PHOSPHOROUS 2.7 mg/dL (2.5-4.9)
[2024-01-04 07:42] LABS: BILIRUBIN,TOTAL 1.9 mg/dL (0.2-1); TOT PROT 5.8 g/dl (6.4-8.2)
[2024-01-04 07:44] LABS: ALBUMIN 2.3 g/dl (3.4-5.0)
[2024-01-04] MEDS: KCL 10 MEQ IVPB 10 MEQ/100 ML INFUS.BAG IVPB SCH (09:00)
[2024-01-04] MEDS: DEXTROSE 5%-LACTATED RINGERS 1,000 ML IV SCH (12:00)
[2024-01-04] MEDS: PANTOPRAZOLE SODIUM 40 MG VIAL IVPUSH SCH (13:54)
[2024-01-04 15:25] LABS: BF GLUCOSE (CSF ONLY) 62 mg/dL (40-70)
[2024-01-04 16:08] LABS: CSF APPEARANCE CLEAR (CLEAR); CSF COLOR COLORLESS (COLORLESS); CSF WBC 0 mm3 (0-5)
[2024-01-04] MEDS: HEPARIN NA (PORCINE) 5,000 UNITS/ML 1ML VIAL SQ SCH (21:07)
[2024-01-05] MEDS: LACTATED RINGERS SOLUTION 1000 ML INFUS.BAG IV ONE ×2 (07:30→22:08)
[2024-01-05 07:34] LABS: HEMATOCRIT 43.6 % (35.4-49); HEMOGLOBIN 13.8 GM/dL (11.7-16.9); MCH 28.3 pg (25.7-33.7); MCHC 31.7 g/dl (32.0-35.9); MEAN CELL VOLUME 89.1 fl (80-96); MEAN PLT VOLUME 10.7 fl (7.5-11.1); PLATELET COUNT 150 10^3/uL (134-434); RBC 4.89 M/mm3 (4.00-5.60); RDW 18.8 % (11.9-15.9); WHITE BLOOD COUNT 3.4 K/mm3 (4.0-10.0)
[2024-01-05 07:57] LABS: POTASSIUM 3.5 mmol/L (3.5-5.1)
[2024-01-05 08:01] LABS: ALBUMIN 2.1 g/dl (3.4-5.0); BLOOD UREA NITROGEN 19.1 mg/dL (7-18)
[2024-01-05 08:02] LABS: CALCIUM 8.6 mg/dL (8.5-10.1); MAGNESIUM 1.8 mg/dL (1.8-2.4)
[2024-01-05 08:04] LABS: CREATININE 1.1 mg/dL (0.55-1.3); PHOSPHOROUS 3.1 mg/dL (2.5-4.9)
[2024-01-05 08:05] LABS: TOT PROT 5.6 g/dl (6.4-8.2)
[2024-01-05 08:08] LABS: BILIRUBIN,TOTAL 1.1 mg/dL (0.2-1)
[2024-01-05 16:05] LABS: POTASSIUM 4.3 mmol/L (3.5-5.1)
[2024-01-05 16:06] LABS: CALCIUM 9.4 mg/dL (8.5-10.1)
[2024-01-05 16:10] LABS: CREATININE 1.4 mg/dL (0.55-1.3)
[2024-01-05 19:11] LABS: MAGNESIUM 1.7 mg/dL (1.8-2.4)
[2024-01-05 19:14] LABS: PHOSPHOROUS 3.7 mg/dL (2.5-4.9)
[2024-01-05] MEDS: DEXTROSE 5%-LACTATED RINGERS 1,000 ML IV SCH (19:41)
[2024-01-05] MEDS: MAGNESIUM SULF 50% (8.12 MEQ/2 ML-1 GM VIAL) IVPB ONE (19:41)
[2024-01-05] MEDS ORDERED: LACTATED RINGERS SOLUTION 1,000 ML/1,000 ML INFUS.BAG IV ONE ×2 (21:44→21:53)
[2024-01-06 06:46] LABS: BASO % 1.6 % (0-2.0); EOS % 4.3 % (0-4.5); HEMOGLOBIN 12.8 GM/dL (11.7-16.9); LYMPH % 28.4 % (8-40); MCH 28.4 pg (25.7-33.7); MEAN CELL VOLUME 88.7 fl (80-96); MEAN PLT VOLUME 9.7 fl (7.5-11.1); MONO % 13.3 % (3.8-10.2); NEUT % 52.4 % (42.8-82.8); PLATELET COUNT 133 10^3/uL (134-434); RBC 4.51 M/mm3 (4.00-5.60); RDW 18.7 % (11.9-15.9); WHITE BLOOD COUNT 3.8 K/mm3 (4.0-10.0)
[2024-01-06 07:10] LABS: POTASSIUM 3.6 mmol/L (3.5-5.1)
[2024-01-06 07:14] LABS: BLOOD UREA NITROGEN 16.8 mg/dL (7-18); CALCIUM 8.8 mg/dL (8.5-10.1); MAGNESIUM 2.1 mg/dL (1.8-2.4)
[2024-01-06 07:17] LABS: CREATININE 1.1 mg/dL (0.55-1.3); PHOSPHOROUS 3.3 mg/dL (2.5-4.9)
[2024-01-06 07:19] LABS: BILIRUBIN,TOTAL 1.1 mg/dL (0.2-1); TOT PROT 5.4 g/dl (6.4-8.2)
[2024-01-06 09:36] VITALS: BMI 21.9
[2024-01-06] MEDS: NOREPINEPHRINE BITARTRATE/D5W 8 MG/250 ML BAG IVPB SCH (11:00)
[2024-01-06] MEDS: VALPROATE SODIUM INJECTION 250 MG in SODIUM CHLORIDE 50 ML IVPB ONE (15:40)
[2024-01-06] MEDS: THIAMINE HCL 200 MG/2 ML VIAL IVPB SCH (15:46)
[2024-01-06] MEDS: VALPROATE SODIUM 500 MG/5 ML VIAL IVPB ONE (17:54)
[2024-01-06] MEDS: DEXTROSE 5%-NORMAL SALINE 1,000 ML IV SCH (17:55)
[2024-01-06] MEDS: SODIUM CHLORIDE 500 ML IV STA (19:00)
[2024-01-07 06:22] LABS: HEMATOCRIT 37.7 % (35.4-49); MCH 28.2 pg (25.7-33.7); MEAN CELL VOLUME 88.3 fl (80-96); MEAN PLT VOLUME 9.4 fl (7.5-11.1); PLATELET COUNT 127 10^3/uL (134-434); RBC 4.27 M/mm3 (4.00-5.60); WHITE BLOOD COUNT 3.2 K/mm3 (4.0-10.0)
[2024-01-07 06:49] LABS: POTASSIUM 3.8 mmol/L (3.5-5.1)
[2024-01-07 06:50] LABS: CALCIUM 8.6 mg/dL (8.5-10.1)
[2024-01-07 06:51] LABS: BLOOD UREA NITROGEN 15.6 mg/dL (7-18); MAGNESIUM 1.8 mg/dL (1.8-2.4)
[2024-01-07 06:54] LABS: CREATININE 1.1 mg/dL (0.55-1.3); PHOSPHOROUS 3.6 mg/dL (2.5-4.9)
[2024-01-07] MEDS: VALPROATE SODIUM INJECTION 500 MG in SODIUM CHLORIDE 50 ML IVPB SCH (09:43)
[2024-01-07] MEDS ORDERED: FUROSEMIDE 40 MG TABLET (FP) PO SCH (10:00)
[2024-01-07] MEDS ORDERED: FUROSEMIDE 40 MG/4 ML INJECTABLE VIAL IVPUSH SCH (10:00)
[2024-01-07] MEDS ORDERED: FUROSEMIDE 40 MG/4 ML INJECTABLE VIAL ONE (10:19)
[2024-01-07] MEDS: FUROSEMIDE 40 MG/4 ML INJECTABLE VIAL IVPUSH SCH (10:22)
[2024-01-07] MEDS: CLOPIDOGREL BISULFATE 75 MG TABLET (FP) PO SCH (11:36)
[2024-01-07] MEDS: ASPIRIN 81 MG CHEWABLE TABLETS PO SCH (11:37)
[2024-01-07] MEDS: DEXTROSE 50%-WATER 25 GM/50 ML DISP.SYRIN IVPUSH ONE (13:29)
[2024-01-07] MEDS: CEFTRIAXONE 2 GM in DEXTROSE 5%-WATER 100 ML IVPB SCH (16:03)
[2024-01-07] MEDS: VALPROATE SODIUM INJECTION 250 MG in SODIUM CHLORIDE 50 ML IVPB SCH (21:52)
[2024-01-07] MEDS ORDERED: VALPROATE SODIUM 500 MG/5 ML VIAL IVPB SCH (22:00)
[2024-01-08 06:32] LABS: HEMATOCRIT 38.1 % (35.4-49); HEMOGLOBIN 12.2 GM/dL (11.7-16.9); MCH 28.4 pg (25.7-33.7); MEAN CELL VOLUME 88.8 fl (80-96); MEAN PLT VOLUME 9.8 fl (7.5-11.1); PLATELET COUNT 131 10^3/uL (134-434); RBC 4.29 M/mm3 (4.00-5.60); RDW 18.8 % (11.9-15.9); WHITE BLOOD COUNT 3.3 K/mm3 (4.0-10.0)
[2024-01-08 10:07] LABS: LYME PCR CSF Negative (Negative)
[2024-01-08] MEDS: INSULIN ASPART SLIDING SCALE (NOVOLOG) 1 VIAL SQ SCH (17:37)
[2024-01-08 18:09] LABS: ALPHA-1-GLOBULIN,CSF 6.5 % (2.2-6.2); ALPHA-2-GLOBULIN,CSF 5.6 % (3.1-8.7); BETA GLOBULIN,CSF 21.7 % (11.8-21.7); GAMMA GLOBULIN,CSF 11.5 % (2.8-8.5); M-SPIKE CSF Not Observed % (Not Observed); PRE-ALBUMIN CSF 2.5 % (1.2-5.5)
[2024-01-08] MEDS: METOPROLOL TARTRATE 25 MG TABLET (FP) NGT SCH (18:36)
[2024-01-08] MEDS ORDERED: CHLORHEXIDINE GLUCONATE 4% CLEANSER FOR DECOLONIZATION TP SCH (22:00)
[2024-01-08] MEDS ORDERED: VALPROATE SODIUM 250 MG/5 ML UNIT DOSE CUP PO SCH (22:00)
[2024-01-08] MEDS: HEPARIN NA (PORCINE) 5,000 UNITS/ML 1ML VIAL SQ SCH (22:28)
[2024-01-08] MEDS: VALPROATE SODIUM 250 MG/5 ML UNIT DOSE CUP PO SCH (22:28)
[2024-01-08] MEDS: ATORVASTATIN CA 40 MG TABLET (FP) PO SCH (22:31)
[2024-01-09] MEDS: LEVOTHYROXINE SODIUM 100 MCG 5 ML VIAL IVPUSH SCH (09:50)
[2024-01-09] MEDS: CLOPIDOGREL BISULFATE 75 MG TABLET (FP) PO SCH (09:51)
[2024-01-09] MEDS: FUROSEMIDE 40 MG/4 ML INJECTABLE VIAL IVPUSH SCH (09:51)
[2024-01-09] MEDS: ASPIRIN 81 MG CHEWABLE TABLETS PO SCH (09:51)
[2024-01-09] MEDS: CEFTRIAXONE 2 GM in DEXTROSE 5%-WATER 100 ML IVPB SCH (09:51)
[2024-01-09] MEDS: THIAMINE HCL 200 MG/2 ML VIAL IVPB SCH (09:52)
[2024-01-09 10:42] LABS: HEMATOCRIT 42.5 % (35.4-49); HEMOGLOBIN 13.8 GM/dL (11.7-16.9); MCH 28.7 pg (25.7-33.7); MCHC 32.5 g/dl (32.0-35.9); MEAN CELL VOLUME 88.4 fl (80-96); MEAN PLT VOLUME 10.6 fl (7.5-11.1); PLATELET COUNT 158 10^3/uL (134-434); RBC 4.81 M/mm3 (4.00-5.60); RDW 19.6 % (11.9-15.9)
[2024-01-09 11:12] LABS: POTASSIUM 4.8 mmol/L (3.5-5.1)
[2024-01-09 11:19] LABS: BLOOD UREA NITROGEN 27.8 mg/dL (7-18); MAGNESIUM 2.2 mg/dL (1.8-2.4)
[2024-01-09 11:20] LABS: PHOSPHOROUS 3.3 mg/dL (2.5-4.9)
[2024-01-09 11:21] LABS: TOT PROT 6.8 g/dl (6.4-8.2)
[2024-01-09 11:22] LABS: BILIRUBIN,TOTAL 1.1 mg/dL (0.2-1); CREATININE 1.4 mg/dL (0.55-1.3)
[2024-01-09 11:25] LABS: ALBUMIN 2.8 g/dl (3.4-5.0)
[2024-01-09] MEDS: LORazepam 2 MG/ML SDV VIAL IVPUSH ONE (22:36)
[2024-01-10] MEDS ORDERED: VALPROATE SODIUM 500 MG/5 ML VIAL IVPB SCH (00:45)
[2024-01-10] MEDS: VALPROATE SODIUM INJECTION 500 MG in SODIUM CHLORIDE 100 ML IVPB SCH (01:33)
[2024-01-10 09:06] LABS: BASO % 0.7 % (0-2.0); EOS % 0.3 % (0-4.5); HEMATOCRIT 37.8 % (35.4-49); HEMOGLOBIN 11.9 GM/dL (11.7-16.9); LYMPH % 15.9 % (8-40); MCH 28.2 pg (25.7-33.7); MCHC 31.5 g/dl (32.0-35.9); MEAN CELL VOLUME 89.7 fl (80-96); MONO % 13.4 % (3.8-10.2); NEUT % 69.7 % (42.8-82.8); PLATELET COUNT 133 10^3/uL (134-434); RBC 4.21 M/mm3 (4.00-5.60); RDW 19.1 % (11.9-15.9); WHITE BLOOD COUNT 5.2 K/mm3 (4.0-10.0)
[2024-01-10 09:22] LABS: POTASSIUM 4.5 mmol/L (3.5-5.1)
[2024-01-10 09:24] LABS: CALCIUM 9.2 mg/dL (8.5-10.1)
[2024-01-10 09:25] LABS: ALBUMIN 2.7 g/dl (3.4-5.0); BLOOD UREA NITROGEN 36.4 mg/dL (7-18)
[2024-01-10 09:29] LABS: BILIRUBIN,TOTAL 0.9 mg/dL (0.2-1); CREATININE 1.6 mg/dL (0.55-1.3)
[2024-01-10 09:30] LABS: TOT PROT 6.4 g/dl (6.4-8.2)
[2024-01-11 09:30] LABS: BASO % 0.9 % (0-2.0); EOS % 0.4 % (0-4.5); HEMOGLOBIN 12.4 GM/dL (11.7-16.9); MCH 28.7 pg (25.7-33.7); MCHC 32.5 g/dl (32.0-35.9); MEAN CELL VOLUME 88.2 fl (80-96); MEAN PLT VOLUME 10.9 fl (7.5-11.1); MONO % 14.5 % (3.8-10.2); NEUT % 62.2 % (42.8-82.8); PLATELET COUNT 144 10^3/uL (134-434); RBC 4.31 M/mm3 (4.00-5.60); RDW 18.9 % (11.9-15.9); WHITE BLOOD COUNT 4.1 K/mm3 (4.0-10.0)
[2024-01-11 09:36] LABS: INR 1.78 (0.83-1.09); PROTHROMBIN TIME (PATIENT) 20.5 SEC (9.7-13.0)
[2024-01-11 09:51] LABS: POTASSIUM 4.9 mmol/L (3.5-5.1)
[2024-01-11 09:59] LABS: BLOOD UREA NITROGEN 45.9 mg/dL (7-18); CALCIUM 9.2 mg/dL (8.5-10.1); MAGNESIUM 2.1 mg/dL (1.8-2.4)
[2024-01-11 10:02] LABS: CREATININE 1.7 mg/dL (0.55-1.3)
[2024-01-11] MEDS ORDERED: INSULIN (NOVOLOG) ASPART 100 UNITS/ML 10ML VIAL ONE (13:35)
[2024-01-11 17:07] LABS: MYELIN BASIC PROTEIN,CSF 31.6 ng/mL (0.0-4.7)
[2024-01-12] MEDS: AMINO ACIDS/PROTEIN HYDROLYS 30 ML LIQUID.PKT PO SCH (10:10)
[2024-01-12] MEDS ORDERED: INSULIN (NOVOLOG) ASPART 100 UNITS/ML 10ML VIAL ONE ×2 (12:27→17:54)
[2024-01-12] MEDS: METOPROLOL TARTRATE 25 MG TABLET (FP) PO SCH (18:04)
[2024-01-13 09:42] LABS: BASO % 1.4 % (0-2.0); EOS % 0.5 % (0-4.5); HEMATOCRIT 40.8 % (35.4-49); HEMOGLOBIN 12.6 GM/dL (11.7-16.9); LYMPH % 23.9 % (8-40); MCH 27.8 pg (25.7-33.7); MEAN CELL VOLUME 89.8 fl (80-96); MEAN PLT VOLUME 11.6 fl (7.5-11.1); MONO % 19.6 % (3.8-10.2); NEUT % 54.6 % (42.8-82.8); PLATELET COUNT 168 10^3/uL (134-434); RBC 4.54 M/mm3 (4.00-5.60); RDW 19.1 % (11.9-15.9)
[2024-01-13 10:05] LABS: POTASSIUM 4.6 mmol/L (3.5-5.1)
[2024-01-13 10:23] LABS: BLOOD UREA NITROGEN 54.2 mg/dL (7-18)
[2024-01-13 10:24] LABS: BILIRUBIN,TOTAL 0.9 mg/dL (0.2-1); CALCIUM 9.5 mg/dL (8.5-10.1); MAGNESIUM 2.6 mg/dL (1.8-2.4)
[2024-01-13 10:25] LABS: ALBUMIN 2.8 g/dl (3.4-5.0); CREATININE 1.7 mg/dL (0.55-1.3); TOT PROT 6.8 g/dl (6.4-8.2)
[2024-01-13] MEDS ORDERED: INSULIN (NOVOLOG) ASPART 100 UNITS/ML 10ML VIAL ONE (17:11)
[2024-01-13] MEDS: METOPROLOL TARTRATE 25 MG TABLET (FP) PO SCH (17:19)
[2024-01-14 08:19] LABS: INR 1.69 (0.83-1.09); PROTHROMBIN TIME (PATIENT) 19.5 SEC (9.7-13.0)
[2024-01-14 08:21] LABS: POTASSIUM 4.4 mmol/L (3.5-5.1)
[2024-01-14 08:25] LABS: BLOOD UREA NITROGEN 49.7 mg/dL (7-18)
[2024-01-14 08:26] LABS: CALCIUM 9.3 mg/dL (8.5-10.1); MAGNESIUM 2.5 mg/dL (1.8-2.4)
[2024-01-14 08:27] LABS: ALBUMIN 2.7 g/dl (3.4-5.0)
[2024-01-14 08:28] LABS: CREATININE 1.5 mg/dL (0.55-1.3)
[2024-01-14 08:33] LABS: BILIRUBIN,TOTAL 1.4 mg/dL (0.2-1); TOT PROT 6.6 g/dl (6.4-8.2)
[2024-01-14 08:49] LABS: BASO % 0.7 % (0-2.0); EOS % 0.2 % (0-4.5); HEMATOCRIT 39.1 % (35.4-49); HEMOGLOBIN 12.8 GM/dL (11.7-16.9); LYMPH % 22.6 % (8-40); MCH 28.9 pg (25.7-33.7); MCHC 32.7 g/dl (32.0-35.9); MEAN CELL VOLUME 88.3 fl (80-96); MEAN PLT VOLUME 11.3 fl (7.5-11.1); NEUT % 59.5 % (42.8-82.8); PLATELET COUNT 162 10^3/uL (134-434); RBC 4.43 M/mm3 (4.00-5.60); RDW 19.4 % (11.9-15.9); WHITE BLOOD COUNT 4.1 K/mm3 (4.0-10.0)
[2024-01-14] MEDS: FUROSEMIDE 40 MG TABLET (FP) PO SCH (10:21)
[2024-01-14] MEDS: HEPARIN NA (PORCINE) 5,000 UNITS/ML 1ML VIAL SQ SCH (21:56)
[2024-01-15 07:50] LABS: BASO % 0.6 % (0-2.0); EOS % 0.2 % (0-4.5); HEMATOCRIT 38.8 % (35.4-49); LYMPH % 19.9 % (8-40); MCH 28.1 pg (25.7-33.7); MCHC 30.8 g/dl (32.0-35.9); MEAN CELL VOLUME 91.3 fl (80-96); MEAN PLT VOLUME 11.6 fl (7.5-11.1); MONO % 16.8 % (3.8-10.2); NEUT % 62.5 % (42.8-82.8); PLATELET COUNT 161 10^3/uL (134-434); RBC 4.25 M/mm3 (4.00-5.60); RDW 20.3 % (11.9-15.9); WHITE BLOOD COUNT 4.3 K/mm3 (4.0-10.0)
[2024-01-15 08:11] LABS: CHLORIDE 102 mmol/L (98-107); SODIUM 137 mmol/L (136-145)
[2024-01-15 08:14] LABS: ALBUMIN 2.6 g/dl (3.4-5.0)
[2024-01-15 08:15] LABS: BLOOD UREA NITROGEN 49.9 mg/dL (7-18); CALCIUM 8.5 mg/dL (8.5-10.1); CO2 28 mmol/L (21-32); GLUCOSE,RANDOM 110 mg/dL (74-106); MAGNESIUM 2.4 mg/dL (1.8-2.4)
[2024-01-15 08:17] LABS: CREATININE 1.6 mg/dL (0.55-1.3)
[2024-01-15 08:18] LABS: SGOT/AST 35 U/L (15-37); SGPT/ALT 13 U/L (13-61)
[2024-01-15 08:19] LABS: BILIRUBIN,TOTAL 0.7 mg/dL (0.2-1); TOT PROT 6.3 g/dl (6.4-8.2)
[2024-01-15 08:23] LABS: ALK PHOS 147 U/L (45-117)
[2024-01-15 08:24] LABS: ANION GAP 6 mmol/L (4-13); POTASSIUM 6.3 mmol/L (3.5-5.1)
[2024-01-15] MEDS: AMOX TR/POT CLAV 500MG/125MG TABLETS (FP) PO SCH (11:11)
[2024-01-16 09:14] LABS: BASO % 0.7 % (0-2.0); EOS % 0.1 % (0-4.5); HEMATOCRIT 38.3 % (35.4-49); HEMOGLOBIN 11.9 GM/dL (11.7-16.9); LYMPH % 15.7 % (8-40); MCH 28.2 pg (25.7-33.7); MCHC 31.1 g/dl (32.0-35.9); MEAN CELL VOLUME 90.7 fl (80-96); MEAN PLT VOLUME 11.6 fl (7.5-11.1); MONO % 13.6 % (3.8-10.2); NEUT % 69.9 % (42.8-82.8); PLATELET COUNT 143 10^3/uL (134-434); RBC 4.22 M/mm3 (4.00-5.60); RDW 20.2 % (11.9-15.9); WHITE BLOOD COUNT 4.9 K/mm3 (4.0-10.0)
[2024-01-16 09:20] LABS: POTASSIUM 4.5 mmol/L (3.5-5.1)
[2024-01-16 09:28] LABS: BLOOD UREA NITROGEN 52.5 mg/dL (7-18); CALCIUM 9.1 mg/dL (8.5-10.1)
[2024-01-16 09:29] LABS: ALBUMIN 2.7 g/dl (3.4-5.0); MAGNESIUM 2.4 mg/dL (1.8-2.4)
[2024-01-16 09:31] LABS: CREATININE 1.5 mg/dL (0.55-1.3)
[2024-01-16 09:33] LABS: BILIRUBIN,TOTAL 0.9 mg/dL (0.2-1); TOT PROT 6.4 g/dl (6.4-8.2)
[2024-01-16] MEDS ORDERED: INSULIN (NOVOLOG) ASPART 100 UNITS/ML 10ML VIAL ONE (11:47)
[2024-01-17 08:50] LABS: BASO % 0.4 % (0-2.0); EOS % 0.1 % (0-4.5); HEMATOCRIT 39.1 % (35.4-49); HEMOGLOBIN 12.5 GM/dL (11.7-16.9); LYMPH % 15.5 % (8-40); MCH 28.8 pg (25.7-33.7); MEAN CELL VOLUME 90.2 fl (80-96); MEAN PLT VOLUME 11.7 fl (7.5-11.1); MONO % 14.9 % (3.8-10.2); NEUT % 69.1 % (42.8-82.8); PLATELET COUNT 139 10^3/uL (134-434); RBC 4.33 M/mm3 (4.00-5.60); RDW 20.3 % (11.9-15.9); WHITE BLOOD COUNT 3.8 K/mm3 (4.0-10.0)
[2024-01-17 08:53] LABS: POTASSIUM 4.5 mmol/L (3.5-5.1)
[2024-01-17 08:58] LABS: CALCIUM 9.2 mg/dL (8.5-10.1)
[2024-01-17 08:59] LABS: ALBUMIN 2.8 g/dl (3.4-5.0); BLOOD UREA NITROGEN 55.1 mg/dL (7-18)
[2024-01-17 09:02] LABS: CREATININE 1.6 mg/dL (0.55-1.3)
[2024-01-17 09:03] LABS: TOT PROT 6.6 g/dl (6.4-8.2)
[2024-01-17] MEDS: LORazepam 2 MG/ML SDV VIAL IM ONE (12:20)
[2024-01-17] MEDS: LEVOTHYROXINE NA 25 MCG TABLET (FP) PO SCH (12:23)
[2024-01-17] MEDS: DIVALPROEX SODIUM 500 MG TABLET E.C. PO SCH (12:55)
[2024-01-18] MEDS: LEVOTHYROXINE NA 50 MCG TABLET (FP) PO SCH (06:06)
[2024-01-19] MEDS: MIRTAZAPINE 15 MG TABLET (FP) PO SCH (21:47)
[2024-01-20] MEDS: levETIRAcetam 500 MG/5 ML INJECTION VIAL IVPB ONE (12:27)
[2024-01-20 12:48] LABS: HEMATOCRIT 38.9 % (35.4-49); HEMOGLOBIN 12.5 GM/dL (11.7-16.9); MCH 28.9 pg (25.7-33.7); MCHC 32.1 g/dl (32.0-35.9); MEAN CELL VOLUME 89.9 fl (80-96); MEAN PLT VOLUME 12.2 fl (7.5-11.1); PLATELET COUNT 106 10^3/uL (134-434); RBC 4.33 M/mm3 (4.00-5.60); RDW 21.6 % (11.9-15.9); WHITE BLOOD COUNT 4.2 K/mm3 (4.0-10.0)
[2024-01-20] MEDS: LORazepam 0.5 MG TABLET PO PRN (12:57)
[2024-01-20 13:06] LABS: POTASSIUM 4.8 mmol/L (3.5-5.1)
[2024-01-20 13:09] LABS: ALBUMIN 2.8 g/dl (3.4-5.0); BLOOD UREA NITROGEN 74.4 mg/dL (7-18); CALCIUM 9.1 mg/dL (8.5-10.1)
[2024-01-20 13:12] LABS: CREATININE 2.2 mg/dL (0.55-1.3)
[2024-01-20 13:14] LABS: BILIRUBIN,TOTAL 1.4 mg/dL (0.2-1); TOT PROT 6.8 g/dl (6.4-8.2)
[2024-01-20 13:39] LABS: ANISOCYTOSIS 2+; MACROCYTOSIS 0
[2024-01-20 13:43] LABS: PLATELET ESTIMATE DECREASED
[2024-01-21 09:52] LABS: HEMATOCRIT 36.5 % (35.4-49); HEMOGLOBIN 11.8 GM/dL (11.7-16.9); MCH 28.9 pg (25.7-33.7); MCHC 32.3 g/dl (32.0-35.9); MEAN CELL VOLUME 89.4 fl (80-96); MEAN PLT VOLUME 12.6 fl (7.5-11.1); PLATELET COUNT 88 10^3/uL (134-434); RBC 4.09 M/mm3 (4.00-5.60); RDW 22.5 % (11.9-15.9)
[2024-01-21 10:15] LABS: POTASSIUM 4.1 mmol/L (3.5-5.1)
[2024-01-21 10:17] LABS: ALBUMIN 2.6 g/dl (3.4-5.0); ANISOCYTOSIS 1+; BLOOD UREA NITROGEN 71.6 mg/dL (7-18); CALCIUM 8.8 mg/dL (8.5-10.1); MACROCYTOSIS 0; MAGNESIUM 2.7 mg/dL (1.8-2.4)
[2024-01-21 10:20] LABS: CREATININE 1.9 mg/dL (0.55-1.3)
[2024-01-21 10:22] LABS: BILIRUBIN,TOTAL 1.4 mg/dL (0.2-1); TOT PROT 6.3 g/dl (6.4-8.2)
[2024-01-21] MEDS ORDERED: DEXTROSE 50%-WATER 25 GM/50 ML DISP.SYRIN ONE (11:55)
[2024-01-21] MEDS: DEXTROSE 50%-WATER 25 GM/50 ML DISP.SYRIN IVPUSH ONE (12:11)
[2024-01-21] MEDS ORDERED: VALPROATE SODIUM 500 MG/5 ML VIAL IVPB ONE (14:00)
[2024-01-21] MEDS: DEXTROSE 5% IVPB ONE (14:24)
[2024-01-21] MEDS: VALPROATE SODIUM IVPB ONE (14:24)
[2024-01-21] MEDS: WATER IVPB ONE (14:24)
[2024-01-21] MEDS: DEXTROSE 5%-0.45% SALINE 1,000 ML IV SCH (14:25)
[2024-01-21] MEDS ORDERED: INSULIN (NOVOLOG) ASPART 100 UNITS/ML 10ML VIAL ONE (18:03)
[2024-01-21] MEDS ORDERED: WATER IVPB SCH (22:00)
[2024-01-21] MEDS ORDERED: VALPROATE SODIUM IVPB SCH (22:00)
[2024-01-21] MEDS ORDERED: VALPROATE SODIUM 500 MG/5 ML VIAL IVPB SCH (22:00)
[2024-01-21] MEDS ORDERED: DEXTROSE 5% IVPB SCH (22:00)
[2024-01-21] MEDS: DIVALPROEX SODIUM 500 MG TABLET E.C. PO SCH (22:09)
[2024-01-22 07:59] LABS: POTASSIUM 4.3 mmol/L (3.5-5.1)
[2024-01-22 08:33] LABS: ALBUMIN 2.7 g/dl (3.4-5.0); BLOOD UREA NITROGEN 66.8 mg/dL (7-18)
[2024-01-22 08:34] LABS: BASO % 0.2 % (0-2.0); EOS % 0.1 % (0-4.5); HEMATOCRIT 37.4 % (35.4-49); HEMOGLOBIN 11.8 GM/dL (11.7-16.9); MCH 28.9 pg (25.7-33.7); MCHC 31.7 g/dl (32.0-35.9); MEAN CELL VOLUME 91.2 fl (80-96); MEAN PLT VOLUME 15.2 fl (7.5-11.1); MONO % 26.1 % (3.8-10.2); NEUT % 60.6 % (42.8-82.8); PLATELET COUNT 91 10^3/uL (134-434); RDW 22.7 % (11.9-15.9); WHITE BLOOD COUNT 3.9 K/mm3 (4.0-10.0)
[2024-01-22 08:36] LABS: CREATININE 1.9 mg/dL (0.55-1.3)
[2024-01-22 08:38] LABS: BILIRUBIN,TOTAL 1.7 mg/dL (0.2-1); TOT PROT 6.4 g/dl (6.4-8.2)
[2024-01-22 08:42] LABS: CALCIUM 8.8 mg/dL (8.5-10.1)
[2024-01-22 08:43] LABS: MAGNESIUM 2.8 mg/dL (1.8-2.4)
[2024-01-22 09:22] LABS: ANISOCYTOSIS 1+; MACROCYTOSIS 0
[2024-01-22] MEDS ORDERED: INSULIN (NOVOLOG) ASPART 100 UNITS/ML 10ML VIAL ONE (12:23)
[2024-01-22] MEDS: DEXTROSE 5%-NORMAL SALINE 1,000 ML IV SCH (18:54)
[2024-01-23 09:02] LABS: HEMOGLOBIN 12.3 GM/dL (11.7-16.9); MCH 28.9 pg (25.7-33.7); MCHC 31.6 g/dl (32.0-35.9); MEAN CELL VOLUME 91.4 fl (80-96); MEAN PLT VOLUME 15.2 fl (7.5-11.1); RBC 4.27 M/mm3 (4.00-5.60); RDW 22.4 % (11.9-15.9)
[2024-01-23 09:03] LABS: PLATELET COUNT 81 10^3/uL (134-434)
[2024-01-23 09:20] LABS: POTASSIUM 4.9 mmol/L (3.5-5.1)
[2024-01-23 09:22] LABS: ALBUMIN 2.8 g/dl (3.4-5.0); CALCIUM 8.6 mg/dL (8.5-10.1)
[2024-01-23 09:23] LABS: BLOOD UREA NITROGEN 70.4 mg/dL (7-18); MAGNESIUM 2.8 mg/dL (1.8-2.4)
[2024-01-23 09:26] LABS: CREATININE 1.8 mg/dL (0.55-1.3)
[2024-01-23 09:28] LABS: BILIRUBIN,TOTAL 1.9 mg/dL (0.2-1); TOT PROT 6.8 g/dl (6.4-8.2)
[2024-01-23 10:00] LABS: ANISOCYTOSIS 1+; MACROCYTOSIS 0
[2024-01-23] MEDS ORDERED: INSULIN (NOVOLOG) ASPART 100 UNITS/ML 10ML VIAL ONE (12:22)
[2024-01-24 08:57] LABS: INR 2.6 (0.83-1.09); PROTHROMBIN TIME (PATIENT) 29.9 SEC (9.7-13.0)
[2024-01-24 09:03] LABS: HEMATOCRIT 40.5 % (35.4-49); HEMOGLOBIN 12.6 GM/dL (11.7-16.9); MCH 28.5 pg (25.7-33.7); MCHC 31.1 g/dl (32.0-35.9); MEAN CELL VOLUME 91.8 fl (80-96); MEAN PLT VOLUME 13.3 fl (7.5-11.1); RBC 4.41 M/mm3 (4.00-5.60)
[2024-01-24 09:10] LABS: PLATELET COUNT 61 10^3/uL (134-434)
[2024-01-24 09:15] LABS: POTASSIUM 5.4 mmol/L (3.5-5.1)
[2024-01-24 09:27] LABS: CALCIUM 8.9 mg/dL (8.5-10.1)
[2024-01-24 09:28] LABS: ALBUMIN 2.9 g/dl (3.4-5.0); BLOOD UREA NITROGEN 83.5 mg/dL (7-18); MAGNESIUM 3.1 mg/dL (1.8-2.4)
[2024-01-24 09:31] LABS: CREATININE 1.9 mg/dL (0.55-1.3); TOT PROT 7.1 g/dl (6.4-8.2)
[2024-01-24 09:34] LABS: BILIRUBIN,TOTAL 2.5 mg/dL (0.2-1)
[2024-01-24 09:55] LABS: ANISOCYTOSIS 1+; MACROCYTOSIS 0
[2024-01-24] MEDS: SODIUM ZIRCONIUM CYCLOSILICATE (LOKELMA) 5 GM PACKET PO ONE (15:13)
[2024-01-24] MEDS: FUROSEMIDE 40 MG/4 ML INJECTABLE VIAL IVPUSH ONE (17:56)
[2024-01-24] MEDS ORDERED: INSULIN (NOVOLOG) ASPART 100 UNITS/ML 10ML VIAL ONE (19:27)
[2024-01-25] MEDS: FUROSEMIDE 40 MG TABLET (FP) PO SCH (10:07)
[2024-01-25] MEDS: VALPROATE SODIUM 250 MG/5 ML UNIT DOSE CUP PO SCH (10:39)
[2024-01-25] MEDS ORDERED: INSULIN (NOVOLOG) ASPART 100 UNITS/ML 10ML VIAL ONE (17:37)
[2024-01-26] MEDS ORDERED: INSULIN (NOVOLOG) ASPART 100 UNITS/ML 10ML VIAL ONE (12:03)
[2024-01-27 10:05] LABS: BASO % 0.5 % (0-2.0); HEMATOCRIT 39.2 % (35.4-49); HEMOGLOBIN 12.4 GM/dL (11.7-16.9); LYMPH % 20.6 % (8-40); MCH 28.9 pg (25.7-33.7); MCHC 31.5 g/dl (32.0-35.9); MEAN CELL VOLUME 91.7 fl (80-96); MEAN PLT VOLUME 10.2 fl (7.5-11.1); MONO % 17.9 % (3.8-10.2); RBC 4.28 M/mm3 (4.00-5.60); RDW 23.3 % (11.9-15.9); WHITE BLOOD COUNT 3.4 K/mm3 (4.0-10.0)
[2024-01-27 10:09] LABS: POTASSIUM 5.1 mmol/L (3.5-5.1)
[2024-01-27 10:18] LABS: ALBUMIN 2.7 g/dl (3.4-5.0); BLOOD UREA NITROGEN 93.6 mg/dL (7-18); CALCIUM 8.6 mg/dL (8.5-10.1)
[2024-01-27 10:21] LABS: CREATININE 1.8 mg/dL (0.55-1.3)
[2024-01-27 10:22] LABS: BILIRUBIN,TOTAL 2.4 mg/dL (0.2-1); TOT PROT 6.8 g/dl (6.4-8.2)
[2024-01-27 11:05] LABS: ANISOCYTOSIS 3+; MACROCYTOSIS 0
[2024-01-27] MEDS ORDERED: INSULIN (NOVOLOG) ASPART 100 UNITS/ML 10ML VIAL ONE ×2 (12:46→17:41)
[2024-01-27 13:46] LABS: PLATELET COUNT 15 10^3/uL (134-434)
[2024-01-27 14:02] LABS: INR 1.9 (0.83-1.09); PROTHROMBIN TIME (PATIENT) 21.9 SEC (9.7-13.0)
[2024-01-28] MEDS: VALSARTAN 40 MG TABLET PO SCH (10:01)
[2024-01-28] MEDS: MULTIVITAMINS (DAILY MVI) TABLET (FP) PO SCH (10:01)
[2024-01-28 12:21] LABS: HEMOGLOBIN 11.8 GM/dL (11.7-16.9); MCH 29.1 pg (25.7-33.7); MCHC 31.9 g/dl (32.0-35.9); MEAN CELL VOLUME 91.3 fl (80-96); MEAN PLT VOLUME 11.5 fl (7.5-11.1); RBC 4.05 M/mm3 (4.00-5.60); RDW 23.1 % (11.9-15.9); WHITE BLOOD COUNT 3.1 K/mm3 (4.0-10.0)
[2024-01-28 12:22] LABS: PLATELET COUNT 85 10^3/uL (134-434)
[2024-01-28 12:44] LABS: ALBUMIN 2.8 g/dl (3.4-5.0); ANISOCYTOSIS 2+; BLOOD UREA NITROGEN 93.4 mg/dL (7-18); CALCIUM 8.9 mg/dL (8.5-10.1)
[2024-01-28 12:47] LABS: CREATININE 1.8 mg/dL (0.55-1.3)
[2024-01-28 12:49] LABS: BILIRUBIN,TOTAL 2.5 mg/dL (0.2-1); TOT PROT 6.8 g/dl (6.4-8.2)
[2024-01-28] MEDS ORDERED: INSULIN (NOVOLOG) ASPART 100 UNITS/ML 10ML VIAL ONE (16:57)
[2024-01-29 09:53] LABS: HEMATOCRIT 40.6 % (35.4-49); HEMOGLOBIN 12.7 GM/dL (11.7-16.9); MCH 28.8 pg (25.7-33.7); MCHC 31.2 g/dl (32.0-35.9); MEAN CELL VOLUME 92.2 fl (80-96); MEAN PLT VOLUME 10.1 fl (7.5-11.1); RDW 23.5 % (11.9-15.9)
[2024-01-29 09:55] LABS: WHITE BLOOD COUNT 3.2 K/mm3 (4.0-10.0)
[2024-01-29 09:58] LABS: PLATELET COUNT 56 10^3/uL (134-434)
[2024-01-29 10:11] LABS: POTASSIUM 5.2 mmol/L (3.5-5.1)
[2024-01-29 10:19] LABS: ALBUMIN 2.8 g/dl (3.4-5.0); BLOOD UREA NITROGEN 94.9 mg/dL (7-18); CREATININE 1.7 mg/dL (0.55-1.3)
[2024-01-29 10:20] LABS: BILIRUBIN,TOTAL 2.6 mg/dL (0.2-1); TOT PROT 7.2 g/dl (6.4-8.2)
[2024-01-29 10:21] LABS: CALCIUM 8.9 mg/dL (8.5-10.1); MAGNESIUM 2.9 mg/dL (1.8-2.4)
[2024-01-29 10:49] LABS: ANISOCYTOSIS 1+; MACROCYTOSIS 0
[2024-01-29] MEDS ORDERED: INSULIN (NOVOLOG) ASPART 100 UNITS/ML 10ML VIAL ONE (16:47)
[2024-01-29] MEDS: SODIUM ZIRCONIUM CYCLOSILICATE (LOKELMA) 5 GM PACKET PO SCH (17:20)
[2024-01-30 10:41] LABS: HEMATOCRIT 39.4 % (35.4-49); HEMOGLOBIN 12.4 GM/dL (11.7-16.9); MCH 28.7 pg (25.7-33.7); MCHC 31.4 g/dl (32.0-35.9); MEAN CELL VOLUME 91.4 fl (80-96); MEAN PLT VOLUME 15.1 fl (7.5-11.1); PLATELET COUNT 86 10^3/uL (134-434); RDW 24.3 % (11.9-15.9); WHITE BLOOD COUNT 2.9 K/mm3 (4.0-10.0)
[2024-01-30 10:52] LABS: POTASSIUM 4.7 mmol/L (3.5-5.1)
[2024-01-30 10:55] LABS: CALCIUM 8.5 mg/dL (8.5-10.1); MAGNESIUM 2.6 mg/dL (1.8-2.4)
[2024-01-30 10:57] LABS: ALBUMIN 2.2 g/dl (3.4-5.0)
[2024-01-30 11:00] LABS: CREATININE 1.5 mg/dL (0.55-1.3)
[2024-01-30 11:02] LABS: TOT PROT 5.9 g/dl (6.4-8.2)
[2024-01-30 11:14] LABS: ANISOCYTOSIS 3+; MACROCYTOSIS 0; TARGET CELLS 1+
[2024-01-30 20:10] LABS: PH,URINE 5.5 (5.0-8.0); URINE APPEARANCE CLEAR; URINE BILIRUBIN NEGATIVE (NEGATIVE); URINE COLOR DK YELLOW; URINE GLUCOSE (UA) NEGATIVE (NEGATIVE); URINE KETONE NEGATIVE (NEGATIVE); URINE LEUK ESTERASE NEGATIVE (NEGATIVE); URINE NITRITE NEGATIVE (NEGATIVE); URINE PROTEIN 1+ (NEGATIVE)
[2024-01-30 20:40] LABS: EPI CELLS 1.1 /uL (0-25.1); HYALINE CASTS 0.29 /uL (0-3.1); URINE RBC 2.7 /uL (0-23.9); URINE WBC 2.4 /uL (0-25.8)
[2024-01-31 09:56] LABS: POTASSIUM 4.5 mmol/L (3.5-5.1)
[2024-01-31 10:01] LABS: ALBUMIN 2.2 g/dl (3.4-5.0); CALCIUM 8.6 mg/dL (8.5-10.1); MAGNESIUM 2.5 mg/dL (1.8-2.4)
[2024-01-31 10:04] LABS: CREATININE 1.3 mg/dL (0.55-1.3)
[2024-01-31 10:07] LABS: BILIRUBIN,TOTAL 2.2 mg/dL (0.2-1)
[2024-01-31 10:08] LABS: TOT PROT 5.8 g/dl (6.4-8.2)
[2024-01-31 10:25] LABS: HEMOGLOBIN 12.6 GM/dL (11.7-16.9); MCH 28.9 pg (25.7-33.7); MCHC 31.6 g/dl (32.0-35.9); MEAN CELL VOLUME 91.5 fl (80-96); MEAN PLT VOLUME 9.7 fl (7.5-11.1); RBC 4.37 M/mm3 (4.00-5.60); RDW 24.8 % (11.9-15.9); WHITE BLOOD COUNT 3.1 K/mm3 (4.0-10.0)
[2024-01-31 12:49] LABS: ANISOCYTOSIS 3+; MACROCYTOSIS 0; TARGET CELLS 2+
[2024-01-31 12:54] LABS: PLATELET COUNT 33 10^3/uL (134-434)
[2024-02-01 08:24] LABS: HEMATOCRIT 39.1 % (35.4-49); HEMOGLOBIN 12.5 GM/dL (11.7-16.9); MEAN CELL VOLUME 90.6 fl (80-96); MEAN PLT VOLUME 11.3 fl (7.5-11.1); RBC 4.32 M/mm3 (4.00-5.60); RDW 25.2 % (11.9-15.9)
[2024-02-01 08:28] LABS: PLATELET COUNT 91 10^3/uL (134-434)
[2024-02-01 08:30] LABS: POTASSIUM 4.5 mmol/L (3.5-5.1)
[2024-02-01 08:32] LABS: ALBUMIN 2.5 g/dl (3.4-5.0); CALCIUM 8.7 mg/dL (8.5-10.1)
[2024-02-01 08:33] LABS: BLOOD UREA NITROGEN 68.1 mg/dL (7-18); MAGNESIUM 2.2 mg/dL (1.8-2.4)
[2024-02-01 08:35] LABS: CREATININE 1.3 mg/dL (0.55-1.3)
[2024-02-01 08:37] LABS: TOT PROT 6.3 g/dl (6.4-8.2)
[2024-02-01 08:38] LABS: BILIRUBIN,TOTAL 2.2 mg/dL (0.2-1)
[2024-02-01] MEDS ORDERED: INSULIN (NOVOLOG) ASPART 100 UNITS/ML 10ML VIAL ONE (11:18)
[2024-02-01 11:22] LABS: ANISOCYTOSIS 2+; MACROCYTOSIS 2+
[2024-02-01 11:23] LABS: PLATELET ESTIMATE DECREASED
[2024-02-02] MEDS: ASCORBIC ACID 500 MG TABLET (FP) PO SCH (13:33)
[2024-02-02] MEDS ORDERED: INSULIN (NOVOLOG) ASPART 100 UNITS/ML 10ML VIAL ONE (17:07)
[2024-02-03 08:42] LABS: HEMATOCRIT 38.5 % (35.4-49); HEMOGLOBIN 12.5 GM/dL (11.7-16.9); MCH 29.3 pg (25.7-33.7); MCHC 32.5 g/dl (32.0-35.9); MEAN CELL VOLUME 90.4 fl (80-96); MEAN PLT VOLUME 14.9 fl (7.5-11.1); PLATELET COUNT 91 10^3/uL (134-434); RBC 4.26 M/mm3 (4.00-5.60); RDW 25.1 % (11.9-15.9); WHITE BLOOD COUNT 3.3 K/mm3 (4.0-10.0)
[2024-02-03 08:51] LABS: POTASSIUM 4.7 mmol/L (3.5-5.1)
[2024-02-03 08:56] LABS: ALBUMIN 2.4 g/dl (3.4-5.0)
[2024-02-03 08:57] LABS: CALCIUM 9.4 mg/dL (8.5-10.1)
[2024-02-03 08:59] LABS: BLOOD UREA NITROGEN 53.4 mg/dL (7-18)
[2024-02-03 09:01] LABS: TOT PROT 6.5 g/dl (6.4-8.2)
[2024-02-03 09:04] LABS: BILIRUBIN,TOTAL 2.1 mg/dL (0.2-1)
[2024-02-03 14:07] VITALS: BP 111/77; PULSE 97; RESP 18; TEMP 98.3
== END 2024-02-03 16:28 | DRG 194 ==
LOC: JER 23:12 → JERBED 12-23 01:18 → J4W 12-23 03:09 → JICU 01-01 17:38 → J8W 01-08 15:57
PROVIDERS: ADMIT Internal Medicine; ATTEND Nurse Practitioner Acute Care
PROC: 0W993ZX Drainage of Right Pleural Cavity, Percutaneous Approach, Diagnostic (ICD-10-PCS; 2023-12-24)
PROC: 4A10X4Z Monitoring of Central Nervous Electrical Activity, External Approach (ICD-10-PCS; 2024-01-01)
PROC: 5A1945Z Respiratory Ventilation, 24-96 Consecutive Hours (ICD-10-PCS; principal; 2024-01-03)
PROC: 0BH17EZ Insertion of Endotracheal Airway into Trachea, Via Natural or Artificial Opening (ICD-10-PCS; 2024-01-03)
PROC: 02HV33Z Insertion of Infusion Device into Superior Vena Cava, Percutaneous Approach (ICD-10-PCS; 2024-01-03)
PROC: B548ZZA Ultrasonography of Superior Vena Cava, Guidance (ICD-10-PCS; 2024-01-03)
PROC: 009U3ZX Drainage of Spinal Canal, Percutaneous Approach, Diagnostic (ICD-10-PCS; 2024-01-04)
PROC: 30233R1 Transfusion of Nonautologous Platelets into Peripheral Vein, Percutaneous Approach (ICD-10-PCS; 2024-01-27)
DX: I13.0 Hypertensive heart and chronic kidney disease with heart failure and stage 1 through stage 4 chronic kidney disease, or unspecified chronic kidney disease (principal); I21.4 Non-ST elevation (NSTEMI) myocardial infarction; I50.23 Acute on chronic systolic (congestive) heart failure; I25.5 Ischemic cardiomyopathy; E03.9 Hypothyroidism, unspecified; N39.0 Urinary tract infection, site not specified; I25.10 Atherosclerotic heart disease of native coronary artery without angina pectoris; N18.9 Chronic kidney disease, unspecified; N17.9 Acute kidney failure, unspecified; E87.20 Acidosis, unspecified; G40.901 Epilepsy, unspecified, not intractable, with status epilepticus; I24.89 Other forms of acute ischemic heart disease; J90 Pleural effusion, not elsewhere classified; G93.41 Metabolic encephalopathy; E87.6 Hypokalemia; G60.8 Other hereditary and idiopathic neuropathies; G00.2 Streptococcal meningitis; J69.0 Pneumonitis due to inhalation of food and vomit; R04.0 Epistaxis; R57.0 Cardiogenic shock; E43 Unspecified severe protein-calorie malnutrition; L76.32 Postprocedural hematoma of skin and subcutaneous tissue following other procedure; Y84.8 Other medical procedures as the cause of abnormal reaction of the patient, or of later complication, without mention of misadventure at the time of the procedure; N18.2 Chronic kidney disease, stage 2 (mild); E11.22 Type 2 diabetes mellitus with diabetic chronic kidney disease; Z68.1 Body mass index [BMI] 19.9 or less, adult; D69.6 Thrombocytopenia, unspecified; E87.5 Hyperkalemia; Z59.00 Homelessness unspecified
CPT/HCPCS: 0241U-QW; 31500; 36415; 36430; 36600; 70450-TC; 70551-TC; 71045-TC-FY; 71250-TC; 74018-TC-FY; 76775-TC; 76942; 80048; 80053; 80162; 80164; 80307; 81003; 82042; 82140; 82248; 82272; 82607; 82803; 82945; 82962; 83010; 83036; 83605; 83615; 83735; 83873; 83880; 83986; 84100; 84157; 84166; 84439; 84443; 84478; 84481; 84484; 85025; 85027; 85032; 85384; 85610; 85730; 86022; 86592; 86705; 86850; 86900; 86901; 87040; 87070; 87075; 87081; 87086; 87102; 87116; 87186; 87205; 87206; 87210; 87340; 87476; 87517; 87522; 87529; 87635; 88108; 88305-TC; 93005; 93010; 93306-TC; 93970-TC; 93971; 94002; 95816; 97116-GP; 97162-GP; 99285-25; J0131; J1250; J1644; P9037; P9038

== ENCOUNTER 2024-02-13 14:16 | Emergency (ER) | payer OTHER ==
[2024-02-13 14:47] VITALS: BMI 21.9
[2024-02-13] MEDS: SODIUM CHLORIDE 0.9% 500 ML INFUS.BAG IV ONE (15:18)
[2024-02-13 15:22] LABS: BASO % 0.2 % (0-2.0); EOS % 0.2 % (0-4.5); HEMATOCRIT 37.9 % (35.4-49); HEMOGLOBIN 12.2 GM/dL (11.7-16.9); LYMPH % 9.3 % (8-40); MCH 29.5 pg (25.7-33.7); MCHC 32.1 g/dl (32.0-35.9); MEAN CELL VOLUME 92.1 fl (80-96); MEAN PLT VOLUME 14.8 fl (7.5-11.1); MONO % 12.8 % (3.8-10.2); NEUT % 77.5 % (42.8-82.8); RBC 4.12 M/mm3 (4.00-5.60); RDW 24.5 % (11.9-15.9); WHITE BLOOD COUNT 2.9 K/mm3 (4.0-10.0)
[2024-02-13] MEDS ORDERED: levETIRAcetam 500 MG/5 ML INJECTION VIAL IVPB ONE (15:35)
[2024-02-13 15:41] LABS: INR 1.41 (0.83-1.09); PROTHROMBIN TIME (PATIENT) 15.8 SEC (9.7-13.0)
[2024-02-13] MEDS: levETIRAcetam 500 MG/5 ML INJECTION VIAL IVPB ONE ×3 (15:43→16:57)
[2024-02-13 15:44] LABS: ACTIVATED PTT 29.9 SECONDS (25.2-36.5)
[2024-02-13] MEDS ORDERED: SODIUM CHLORIDE IVPB ONE (15:45)
[2024-02-13] MEDS ORDERED: LEVETIRACETAM IVPB ONE (15:45)
[2024-02-13 15:51] LABS: CHLORIDE 93 mmol/L (98-107); SODIUM 131 mmol/L (136-145)
[2024-02-13 15:53] LABS: CALCIUM 8.3 mg/dL (8.5-10.1)
[2024-02-13 15:54] LABS: ALBUMIN 2.2 g/dl (3.4-5.0); BLOOD UREA NITROGEN 44.6 mg/dL (7-18); CO2 31 mmol/L (21-32); GLUCOSE,RANDOM 127 mg/dL (74-106)
[2024-02-13 15:57] LABS: CREATININE 1.3 mg/dL (0.55-1.3); SGOT/AST 150 U/L (15-37)
[2024-02-13 15:59] LABS: BILIRUBIN,TOTAL 1.1 mg/dL (0.2-1)
[2024-02-13 16:00] LABS: ALK PHOS 267 U/L (45-117); ANION GAP 7 mmol/L (4-13); POTASSIUM 7.4 mmol/L (3.5-5.1); SGPT/ALT 41 U/L (13-61)
[2024-02-13 16:07] LABS: ANISOCYTOSIS 1+; MACROCYTOSIS 0; OVALOCYTE 1+
[2024-02-13 16:08] LABS: PLATELET COUNT 95 10^3/uL (134-434)
[2024-02-13 16:09] LABS: EPI CELLS 8 /uL (0-25.1); HYALINE CASTS 2 /uL (0-3.1); PH,URINE 5.5 (5.0-8.0); URINE APPEARANCE CLEAR; URINE BACTERIA 2 /uL (0-1359); URINE BILIRUBIN NEGATIVE (NEGATIVE); URINE COLOR YELLOW; URINE GLUCOSE (UA) NEGATIVE (NEGATIVE); URINE KETONE NEGATIVE (NEGATIVE); URINE LEUK ESTERASE NEGATIVE (NEGATIVE); URINE NITRITE NEGATIVE (NEGATIVE); URINE PROTEIN 1+ (NEGATIVE); URINE RBC 24 /uL (0-23.9); URINE WBC 10 /uL (0-25.8)
[2024-02-13] MEDS: SODIUM CHLORIDE IVPB ONE (16:40)
[2024-02-13] MEDS: LEVETIRACETAM IVPB ONE (16:40)
[2024-02-13 16:50] LABS: POTASSIUM 4.3 mmol/L (3.5-5.1)
[2024-02-13 16:52] LABS: CALCIUM 8.3 mg/dL (8.5-10.1)
[2024-02-13 16:53] LABS: ALBUMIN 2.2 g/dl (3.4-5.0); BLOOD UREA NITROGEN 44.8 mg/dL (7-18)
[2024-02-13 16:56] LABS: CREATININE 1.1 mg/dL (0.55-1.3)
[2024-02-13 16:58] LABS: BILIRUBIN,TOTAL 1.1 mg/dL (0.2-1); TOT PROT 6.1 g/dl (6.4-8.2)
[2024-02-13] MEDS ORDERED: FUROSEMIDE 40 MG/4 ML INJECTABLE VIAL ONE (17:01)
[2024-02-13] MEDS: FUROSEMIDE 40 MG/4 ML INJECTABLE VIAL IVPUSH ONE (17:16)
[2024-02-13] MEDS ORDERED: RAPID SEQUENCE INTUBATION KIT NR ONE ×2 (17:19→17:21)
[2024-02-13 17:23] LABS: VENOUS BASE EXCESS 1.1 mmol/L (-2-2); VENOUS O2 SATURATION 48.6 % (70-80); VENOUS PCO2 67.7 mmHg (38-52); VENOUS PH 7.259 (7.310-7.410)
[2024-02-13] MEDS ORDERED: LORazepam 1 MG TABLET ONE (17:24)
[2024-02-13] MEDS ORDERED: PROPOFOL 1,000,000 MCG/100 ML VIAL ONE (17:34)
[2024-02-13] MEDS: ROCURONIUM BROMIDE 50 MG/5 ML VIAL IVPUSH ONE (17:43)
[2024-02-13] MEDS: PROPOFOL 200 MG/20 ML VIAL IVPUSH ONE (17:43)
[2024-02-13] MEDS: PROPOFOL 1,000,000 MCG/100 ML VIAL IVPB SCH (17:43)
[2024-02-13] MEDS ORDERED: DEXAMETHASONE SOD PHOSPHATE 10 MG/1 ML VIAL ONE (17:44)
[2024-02-13] MEDS: DEXAMETHASONE SOD PHOSPHATE 10 MG/1 ML VIAL IVPUSH ONE (17:46)
[2024-02-13] MEDS: LACTULOSE 20 GM/30 ML UDC (FOR RECTAL USE ONLY) PR ONE (18:40)
[2024-02-13 19:18] VITALS: RESP 14
[2024-02-13 19:44] VITALS: BP 99/57; PULSE 90; TEMP 98
== END 2024-02-13 20:11 | disposition short-term general hospital (02) ==
LOC: JER 14:16
PROC: 0BH17EZ Insertion of Endotracheal Airway into Trachea, Via Natural or Artificial Opening (ICD-10-PCS; principal; 2024-02-13)
PROC: 06HM33Z Insertion of Infusion Device into Right Femoral Vein, Percutaneous Approach (ICD-10-PCS; 2024-02-13)
PROC: 3E033GC Introduction of Other Therapeutic Substance into Peripheral Vein, Percutaneous Approach (ICD-10-PCS; 2024-02-13)
PROC: 3E033GC Introduction of Other Therapeutic Substance into Peripheral Vein, Percutaneous Approach (ICD-10-PCS; 2024-02-13)
PROC: 3E033GC Introduction of Other Therapeutic Substance into Peripheral Vein, Percutaneous Approach (ICD-10-PCS; 2024-02-13)
PROC: 3E033GC Introduction of Other Therapeutic Substance into Peripheral Vein, Percutaneous Approach (ICD-10-PCS; 2024-02-13)
PROC: 3E033GC Introduction of Other Therapeutic Substance into Peripheral Vein, Percutaneous Approach (ICD-10-PCS; 2024-02-13)
DX: R56.9 Unspecified convulsions (principal); I50.9 Heart failure, unspecified; I63.9 Cerebral infarction, unspecified; J96.90 Respiratory failure, unspecified, unspecified whether with hypoxia or hypercapnia; R79.89 Other specified abnormal findings of blood chemistry; J90 Pleural effusion, not elsewhere classified
CPT/HCPCS: 36415; 70450-TC; 71045-TC-FY; 80053; 80164; 81003; 82140; 82550; 82553; 82803; 82962; 83735; 84484; 85025; 85610; 85730; 87086; 93005; 93010; 99285-25; J1100